=== PATIENT | male | born 1955 | race Caucasian/White ===

== ENCOUNTER 2024-06-13 08:43 | Outpatient (AMB) | payer MEDICARE, OTHER, SELFPAY ==
--- NOTE | 2024-06-13 09:03 | A.OFFPC_ITS ---
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 Patient is accompanied by his daughter. Patient reports he has concerns for L achilles-heel pain. Patient is also concerned about a large bulging vein that was on this left calf and seems to have disappeared. Patient reports he needs all of his medications and supplies refilled. 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 Accompanied by: Self / Same As Patient Allergies No Known Allergies Allergy (Verified 06/13/24 09:28) Tobacco use date assessed: 06/13/24 Fall risk assessment: No Falls in past year Last assessed Fall Risk: 06/13/24 Dental Screening Dental Screen Date: 06/13/24 Did you have a dental visit in the last 12 months?: Yes Did you have a dental problem in the last 6 months where you did not have access to dental care?: No Was dental information given to patient?: Patient has dentist HPI HPI Comments History of Present Illness Details 68 year old male with type 2 diabetes, p eripheral vascular disease, hypertension, presenting to establish care. Was being seen in the [facility] Type 2 diabetes: on glipizide, metformin. Does not recall the last time he had labs. Needs to find an eye doctor in the area. Has peripheral vascular disease. Has had some time of vein surgery on the right leg. He had swelling of the left varicosities recently-this seemed to subside but now having pain in the left heel achilles and calf area. Does report swelling without redness of the LLE. Denies increased shortness of breath. ROS see HPI PHYSICAL EXAM: GENERAL: Alert and oriented x 3. NAD EYES: EOMI. Anicteric. HENT: Moist mucous membranes. No scleral icterus. No cervical lymphadenopathy. LUNGS: Clear to auscultation bilaterally. CARDIOVASCULAR: Regular rate and rhythm. No murmur. No JVD. ABDOMEN: Soft, non-tender +bs EXTREMITIES: No edema. Non-tender. SKIN: Mild non pitting edema of the left lower leg. Large superficial varicosities. Mild calf pain to palpation. No erythema NEUROLOGIC: No focal neurological deficits. CN II-XII grossly intact PSYCHIATRIC: Cooperative. Appropriate mood and affect FOR[facility]LY [facility] Medical History (Updated 06/13/24 @ 16:17 by Bri Taylor MD) Varicose veins of both lower extremities Thyroid condition Hypertension Hypercholesterolemia Type 2 diabetes mellitus Surgical History (Updated 06/13/24 @ 09:55 by Bri Taylor MD) Status post phlebectomy Status post laser cataract surgery of both eyes Family History (Updated 06/13/24 @ 09:40 by Keren Villarreal CMA) Sister Dementia Father Cardiac disease Mother Cardiac disease Social History (Updated 06/13/24 @ 09:41 by Keren Villarreal CMA) Household Members: None Housing: Apartment Alcohol intake: never Patient Tobacco Use Status: Former Tobacco user Years Smoked: 25 e-Cigarette/Vaping Use: Never Used service: No Current occupational status: retired Cognitive needs: No Hearing needs: No Vision needs: No Questionnaire PHQ-9 Over the last 2 weeks, how often have you been bothered by any of the following problems? 39480 - PHQ-9 Billing: Patient declined-do not bill Source: Developed by Drs. Clark Mckeon, Ning Geronimo, Favian Plata and colleagues, with an educational nakita from [employer]. Thrive Questionnaire Date Thrive assessed: 05/23/24 I am a: Patient What is your living situation today?: I have a steady place to live Within the past 12 months, did the food you bought not last and you didn't have the money to get more?: Never true Within the past 12 months, did you worry whether your food would run out before you got money to buy more?: Never true Do you have trouble paying for medicines?: No Do you have trouble getting transportation to medical appointments?: No Do you have trouble paying your heating and electricity bill?: No Do you have trouble taking care of your child, family member or friend?: No Do you have trouble with day-to-day activities such as bathing, preparing meals, shopping, managing finances, etc.?: No Are you currently unemployed and looking for a job?: No Are you interested in more education?: No Please select the resources that you would like help with: None Currently or been in a relationship where the following occur: No concerns reported THRIVE Score: 0 AUDIT C Alcohol Use Questionnaire (AUDIT-C) 1. How often do you have a drink containing alcohol?: Never 3. How often do you have six or more drinks on one occasion?: Never Total Score: 0 TENA-7 AMB Questionnaire TENA-7 Date TENA - 7 assessed: 06/13/24 Feeling nervous, anxious, or on edge: 0 = Not at all Not being able to stop or control worryin = Not at all Worrying too much about different things: 0 = Not at all Trouble relaxin = Not at all Being so restless that it is hard to sit still: 0 = Not at all Becoming easily annoyed or irritable: 0 = Not at all Feeling afraid as if something awful might happen: 0 = Not at all Total TENA-7 score (0-4 normal; 5-9 mild; 10-14 moderate; 15-21 severe): 0 Source: Developed by Drs. Clark Mckeon, Ning Geronimo, Favian Plata and colleagues, with an educational nakita from [employer]. TENA-7 Assessment Billing TENA-7 Assessment Tool: TENA-7 Assessment 07502 Physical exam (Primary Care) Vital Signs: Last Vital Signs Pulse 80 06/13/24 09:18 Resp 12 06/13/24 09:18 BP 118/68 06/13/24 09:18 Pulse Ox 96 06/13/24 09:18 Oxygen Delivery Method Room Air 06/13/24 09:18 BMI result Body Mass Index 32.7 Tobacco/Smoking Status: Tobacco use Status Tobacco use date assessed 06/13/24 06/13/24 09:41 Patient Tobacco Use Status Former Tobacco user 06/13/24 09:41 e-Cigarette/Vaping Use Never Used 06/13/24 09:41 Thrive Assessment: Date of Thrive Assessment Date Thrive assessed 05/23/24 06/13/24 09:03 Currently or been in a relationship where the following occur: No concerns reported Assessment and Plan Assessment & Plan (1) Type 2 diabetes mellitus: Code(s): E11.9 - Type 2 diabetes mellitus without complications Qualifiers: Diabetes mellitus termination clerk insulin use: without penitentiary use Diabetes mellitus complication status: with circulatory complication Diabetes mellitus complication detail: with other circulatory complications Qualified Code(s): E11.59 - Type 2 diabetes mellitus with other circulatory complications Plan: Check labs. med changes pending results PVD-referral to vascular placed. LLE u/s to r/o DVT (2) Hypertension: Code(s): I10 - Essential (primary) hypertension Qualifiers: Hypertension type: primary hypertension Qualified Code(s): I10 - Essential (primary) hypertension (3) Thyroid condition: Code(s): E07.9 - Disorder of thyroid, unspecified (4) Peripheral vascular disease: Code(s): I73.9 - Peripheral vascular disease, unspecified Plan 68 yo to establish care. past medical, surgical, social and family history reviewed. Chart updated Orders: Orders TSH reflex Free T4 Today E07.9 - Disorder of thyroid, unspecified, E11.9 - Type 2 diabetes mellitus without complications, I10 - Essential (primary) hypertension US venous duplex LE LT Today E07.9 - Disorder of thyroid, unspecified, E11.9 - Type 2 diabetes mellitus without complications, I10 - Essential (primary) hypertension, M79.662 - Pain in left lower leg Lipid Panel Today E07.9 - Disorder of thyroid, unspecified, E11.9 - Type 2 diabetes mellitus without complications, I10 - Essential (primary) hypertension Complete Blood Count Auto Diff Today E07.9 - Disorder of thyroid, unspecified, E11.9 - Type 2 diabetes mellitus without complications, I10 - Essential (primary) hypertension Comprehensive Met. Panel Today E07.9 - Disorder of thyroid, unspecified, E11.9 - Type 2 diabetes mellitus without complications, I10 - Essential (primary) hypertension Hemoglobin A1c Today E07.9 - Disorder of thyroid, unspecified, E11.9 - Type 2 diabetes mellitus without complications, I10 - Essential (primary) hypertension Referrals Vascular Surgery Referral E07.9 - Disorder of thyroid, unspecified, E11.9 - Type 2 diabetes mellitus without complications, I10 - Essential (primary) hypertension, I73.9 - Peripheral vascular disease, unspecified, M79.662 - Pain in left lower leg, Z98.890 - Other specified postprocedural states Medications: New atorvastatin 10 mg PO BEDTIME 90 tabs 3RF hydrochlorothiazide 12.5 mg PO QAM 90 caps 3RF levothyroxine 150 mcg PO DAILY 90 caps 3RF glipizide 10 mg PO DAILY 90 tabs 3RF lisinopril 20 mg PO DAILY 90 tabs 3RF metformin 1,000 mg PO BIDWMEAL 180 tabs 3RF OneTouch Ultra Test (blood sugar diagnostic) once daily 100 ea 3RF NS E11.9 - Type 2 diabetes mellitus without complications OneTouch Delica Plus Lancet (lancets) once daily 100 ea 3RF NS E11.9 - Type 2 diabetes mellitus without complications Coding Level of Care Code New Pt Level 4 (71519) Complex EM visit Add On G2211 Diagnoses Type 2 diabetes mellitus with other circulatory complication, without long-term current use of insulin E11.59 Diabetes mellitus penitentiary insulin use: without penitentiary use Diabetes mellitus complication status: with circulatory complication Diabetes mellitus complication detail: with other circulatory complications Primary hypertension I10 Hypertension type: primary hypertension Thyroid condition E07.9 Peripheral vascular disease I73.9 Additional Codes TENA-7 Assessment Billing - TENA-7 Assessment Tool: TENA-7 Assessment [id number] ([id number])
[2024-06-13 09:18] VITALS: BP 118/68; PULSE 80; RESP 12; O2SAT 96; BMI 32.7
== END 2024-06-13 10:04 | disposition home or self-care (01) ==
PROVIDERS: PCP Internal Medicine; Visit Provider Internal Medicine
DX: E11.59 Type 2 diabetes mellitus with other circulatory complications (principal); I10 Essential (primary) hypertension; E07.9 Disorder of thyroid, unspecified; I73.9 Peripheral vascular disease, unspecified

== ENCOUNTER → 2024-06-13 08:43 | Outpatient (BNVA) | payer MEDICARE, OTHER, SELFPAY | PROVIDERS: PCP Internal Medicine; Visit Provider Internal Medicine | DX: E11.59 Type 2 diabetes mellitus with other circulatory complications (principal); I10 Essential (primary) hypertension; E07.9 Disorder of thyroid, unspecified; I73.9 Peripheral vascular disease, unspecified; Z79.84 Long term (current) use of oral hypoglycemic drugs | CPT/HCPCS: 36415; 80053; 80061; 83036; 84443; 85025; 96127; 99202 ==

== ENCOUNTER 2024-06-13 10:09 | Outpatient (REF) | payer MEDICARE, OTHER, SELFPAY ==
[2024-06-13 11:11] LABS: MANUAL DIFF FLAG NO
[2024-06-13 11:18] LABS: Basophils Absolute Auto 0.1 X10*3/uL (0.0-0.2); Basophils Percent Auto 1.1 % (0-2); Eosinophils Absolute Auto 0.2 X10*3/uL (0.0-0.4); Hematocrit 43.7 % (42.0-52.0); Hemoglobin 14.7 g/dl (14.0-18.0); Imm Gran Abs Auto 0.03 X10*3/uL (0.00-0.03); Imm Gran Pct Auto 0.4 % (0.0-0.4); Lymphocytes Absolute Auto 2.2 X10*3/uL (1.2-4.9); Lymphocytes Percent Auto 27.6 % (20-40); Mean Corpuscular HGB Conc 33.6 g/dl (31.0-36.0); Mean Corpuscular Hemoglobin 26.8 pg (27.0-33.0); Mean Corpuscular Volume 79.6 fL (80.0-98.0); Mean Platelet Volume 10.8 fL (9.4-12.4); Monocytes Absolute Auto 0.8 X10*3/uL (0.1-1.2); Monocytes Percent Auto 9.4 % (2-11); Neutrophils Absolute Auto 4.8 x10*3/uL (2.0-8.3); Neutrophils Percent Auto 59.5 % (45-73); Platelet Count 288 X10*3/uL (160-400); Red Blood Count 5.49 X10*6/uL (4.60-5.80); Red Cell Distribution Width 14.7 % (11.0-16.0)
[2024-06-13 11:39] LABS: Estimated Average Glucose 237 mg/dL; Hemoglobin A1c % 9.9 % (<6.0); Total Hemoglobin (HGBA1C) 3668.8075 umol/L
[2024-06-13 12:00] LABS: Alanine Aminotransferase 32 U/L (0-40); Albumin Level 4.2 g/dL (3.5-5.0); Alkaline Phosphatase 129 U/L (39-117); Anion Gap 13 (12-20); Aspartate Amino Transferase 22 U/L (5-37); Bilirubin Total 1.1 mg/dL (0.0-1.0); Blood Urea Nitrogen 20 mg/dL (9-16); Calcium 9.8 mg/dL (8.4-10.2); Carbon Dioxide 26 mmol/L (22-29); Chloride 100 mmol/L (96-108); Cholesterol 143 mg/dL (<200); Estimated Glomerular Filt Rate > 60; Glucose Random 157 mg/dL (60-115); HDL Cholesterol 38 mg/dL (>40); LDL Cholesterol Calculated 71 mg/dL (<100); Potassium 4.2 mmol/L (3.3-5.1); Sodium 135 mmol/L (135-145); Total Protein 7.3 g/dL (6.5-8.0); Triglycerides 171 mg/dL (<150)
[2024-06-13 12:07] LABS: TSH reflex Free T4 2.48 uIU/mL (0.32-4.0)
== END 2024-06-13 10:10 | disposition home or self-care (01) ==
LOC: HO.WFDLDS 10:09
PROVIDERS: Visit Provider Internal Medicine
DX: E07.9 Disorder of thyroid, unspecified (principal); I10 Essential (primary) hypertension; E11.9 Type 2 diabetes mellitus without complications
CPT/HCPCS: 36415; 80053; 80061; 83036; 84443; 85025

== ENCOUNTER 2024-06-13 16:00 | Outpatient (REF) | payer MEDICARE, SELFPAY ==
--- NOTE | ~2024-06-13 | US_ITS ---
EXAMINATION: US TRIPLEX LOWER EXTREMITY, LEFT CLINICAL INFORMATION: Pain COMPARISON: None available. TECHNIQUE: Color-flow triplex imaging with spectral analysis and compression Doppler were performed on the left lower extremity. FINDINGS: Respiratory variation, normal compression and augmented flow are noted throughout the left lower extremity. The visualized common femoral vein, superficial femoral vein, profunda femoral vein, popliteal vein and midcalf peroneal and posterior tibial venous segments show no evidence of deep venous thrombosis. There is no Mcgraw's cyst. US/US venous duplex LE LT IMPRESSION: No evidence of deep venous thrombosis involving the left lower extremity. Electronically signed by: Ritu Bentley MD 06/13/2024 08:00 PM EDT
== END 2024-06-13 16:01 | disposition home or self-care (01) ==
LOC: HO.US 16:00
PROVIDERS: PCP Internal Medicine; Visit Provider Internal Medicine
DX: M79.662 Pain in left lower leg (principal); I10 Essential (primary) hypertension; E07.9 Disorder of thyroid, unspecified; E11.9 Type 2 diabetes mellitus without complications
CPT/HCPCS: 93971

== ENCOUNTER 2024-07-07 10:29 | Outpatient (AMB) | payer MEDICARE, OTHER, SELFPAY ==
--- NOTE | 2024-07-07 10:34 | MHC.OFFVIS ---
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 States he has leg swelling and bulging varicose veins. He has left leg pain , worse at night. Patient is diabetic. 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 Jac is presenting today as a referral from his PCP for an ongoing left lower extremity pain and discomfort with varicose vein concerns. States the pain is worse at night and his foot becomes swollen. He is not currently using any conservative measures. He does have a history of a right lower extremity phlebectomy a few years ago. He has been negative for DVT on ultrasound recently. He is a nonsmoker but is a diabetic on oral medications. He states his blood sugars go up and down often, his most recent A1c is 9.9%. He also has concerns of left heel pain, which worsens with any activity. He denies history PE or DVT as well as phlebitis. [facility] Medical History Varicose veins of both lower extremities Thyroid condition Hypertension Hypercholesterolemia Type 2 diabetes mellitus Surgical History Status post phlebectomy Status post laser cataract surgery of both eyes Family History Sister Dementia Father Cardiac disease Mother Cardiac disease Social History Household Members: None Housing: Apartment Alcohol intake: never Patient Tobacco Use Status: Former Tobacco user Years Smoked: 25 e-Cigarette/Vaping Use: Never Used service: No Current occupational status: retired Cognitive needs: No Hearing needs: No Vision needs: No Review of Systems Const Reports as per HPI and Denies weakness ENT Reports Normal hearing present and Denies dizziness Card Reports as per HPI, Denies chest pain, Denies chest pain at rest, Denies chest pain with activity, Denies dyspnea and Denies dyspnea on exertion Resp Reports as per HPI, Denies cough, Denies dyspnea and Denies dyspnea on exertion GI Reports as per HPI, Denies abdominal pain, Denies nausea and Denies vomiting Musc Denies numbness Skin/Breast Reports as per HPI, Denies erythema and Denies wounds Neuro Reports Normal hearing present, Denies dizziness, Denies numbness, Denies Sensory deficit (Neuro) and Denies weakness Psych Reports no additional complaints Endo Reports no additional complaints Physical Exam Const General: healthy appearing and no acute distress Orientation/consciousness: patient oriented x3 HEENT Head: Yes normal to inspection Ears: hearing grossly normal bilaterally Mouth: Normal oral and palatal mucosa present Resp Effort & Inspection: normal respiratory effort and able to speak in complete sentences Auscultation: clear to auscultation bilaterally Cardio Jugular venous distension: no JVD Rate: regular rate Rhythm: regular rhythm Heart sounds: S1 normal heart sound present and S2 normal heart sound present Bruits: no abdominal aortic bruits, no carotid bruits, no femoral bruits and no renal bruits Peripheral pulses: Peripheral pulses 2+ throughout GI Inspection: Yes normal to inspection Palpation (GI): No Abdominal aortic bruit present Skin Other: Left lower extremity: 2 bulging varicosities noted on the medial aspect below the knee. Minimal swelling below the ankle. Skin warm dry pink. Strong and palpable DP PT pulses. Right lower extremity: No varicosities noted. Minimal swelling noted below the ankle. Strongly palpable DP PT pulses CEAP: C - 3 edema E - primary A - superficial P - reflux General skin exam: no rashes or lesions noted Wounds: no wounds Hair: normal Neuro General: patient oriented x3 Cranial nerves: Yes Normal hearing present Cognition (Neuro): normal cognition Gait exam (Neuro): Normal gait present Motor exam (neuro): 5/5 motor strength present throughout Sensory Exam: No Sensory deficit (Neuro) Extrem General: Yes normal to inspection, Yes full ROM, Yes capillary refill normal and Yes normal gait Assessment & Plan Assessment & Plan (1) Varicose veins of lower extremity with inflammation, bilateral: Code(s): I83.11 - Varicose veins of right lower extremity with inflammation; I83.12 - Varicose veins of left lower extremity with inflammation Category: Medical Plan: Jac is presenting today as a referral from his PCP for varicose vein concerns. States his left lower extremity is worse than his right. He has a history of an RLE phlebectomy, unknown exact date. He currently complains of cramping and left heel pain, worse at night and worse with activity. He does state that he has swelling as well below his ankles bilaterally. In short, the patient has evidence of venous insufficiency. I have discussed the pathophysiology with the patient. In addition I have provided informational material regarding venous disease to the patient. We have discussed conservative measures including compression, elevation, and exercise. I have also provided a handout regarding appropriate use of compression stockings and where to purchase good compression stockings as well (Nola explained this to him in [place]). I have taken the liberty of ordering venous insufficiency testing with the patient. They will follow up with me after testing. The patient had an opportunity to ask questions regarding the treatment plan. All questions were answered. No major barriers to understanding were identified. The patient expressed understanding and agreement with the above treatment plan. The patient is aware they should contact our office by phone for worsening of the current condition or the appearance of new symptoms. Thank you for allowing me to participate in the vascular care of this patient. If you have any questions or concerns regarding the treatment for the above condition please do not hesitate to contact me. The office telephone contact is [phone]. This note is constructed using voice recognition software. While every effort has been made to ensure accuracy, tower air traffic control specialist errors may have been included. Thank you for allowing me to participate in the care of your patient. Yours sincerely, OLEG Waters Coding Level of Care Code New Pt New Pt Level 4 (12975) Patient Type New Diagnoses Varicose veins of lower extremity with inflammation, bilateral I83.11; I83.12
== END 2024-07-07 10:48 | disposition home or self-care (01) ==
PROVIDERS: PCP Internal Medicine; Visit Provider Physician Assistant Surgical
DX: I83.11 Varicose veins of right lower extremity with inflammation (principal); I83.12 Varicose veins of left lower extremity with inflammation
CPT/HCPCS: 99204

== ENCOUNTER → 2024-07-07 10:29 | Outpatient (BNVA) | payer MEDICARE, SELFPAY | PROVIDERS: PCP Internal Medicine; Visit Provider Physician Assistant Surgical | DX: E11.51 Type 2 diabetes mellitus with diabetic peripheral angiopathy without gangrene (principal); I83.11 Varicose veins of right lower extremity with inflammation; I83.12 Varicose veins of left lower extremity with inflammation | CPT/HCPCS: 99202 ==

== ENCOUNTER 2024-07-22 10:14 | Outpatient (REF) | payer MEDICARE, SELFPAY ==
--- NOTE | ~2024-07-22 | US_ITS ---
EXAMINATION: US LOWER EXTREMITY VENOUS (REFLUX EXAM), BILATERAL CLINICAL INDICATION: Chronic venous insufficiency with history of varicose veins and inflammation. Status post right great saphenous vein ablation COMPARISON: None. TECHNIQUE: Color flow triplex imaging and compression Doppler was performed to evaluate both the deep and the superficial systems bilaterally. To evaluate the superficial system, the examination was performed in the upright position. Color-flow Doppler ultrasound and compression ultrasound were utilized. In addition, maneuvers were utilized to demonstrate reflux. FINDINGS: 1. DEEP VENOUS ULTRASOUND OF THE RIGHT LOWER EXTREMITY: Common Femoral Vein: Compressible, normal respiratory variation and augmented flow. Femoral Vein: Compressible, normal color flow and augmentation. Popliteal Vein: Compressible, normal augmentation. Deep Reflux: There is no evidence of reflux in the deep system in either the common femoral vein, superficial femoral or the popliteal vein. There is no evidence of a Mgcraw's cyst. 2. SUPERFICIAL ULTRASOUND WITH DOPPLER OF RIGHT LOWER EXTREMITY: GREAT SAPHENOUS VEIN: Saphenofemoral Junction: 0.8 cm; Reflux: 0 ms Proximal Thigh: 0.4 cm; Reflux: 0 ms Mid Thigh: Not visualized Above Knee: Not visualized At Knee: Not visualized Below Knee: 0.1 cm; Reflux: 0 ms Mid Calf: 0.1 cm; Reflux: 2404 ms Ankle: 0.4 cm; Reflux: 0 ms DUPLICATED MEDIAL GREAT SAPHENOUS VEIN: Diameter: None imaged Reflux: NA DUPLICATED LATERAL GREAT SAPHENOUS VEIN: Diameter: 0.3 cm Reflux: None SMALL SAPHENOUS VEIN: Saphenopopliteal Junction: 0.2 cm; Reflux: 0 ms Mid: 0.3 cm; Reflux: 0 ms Distal: 0.2 cm; Reflux: 0 ms VEIN OF GIACOMINI: Size: NA Reflux: NA PERFORATORS: Location: Medial proximal calf into the great saphenous vein and varicosities Size: 0.3 cm Reflux: 2108 ms VARICOSITIES: Location: Distal medial calf Size: 0.3 cm Reflux: None 3. DEEP VENOUS ULTRASOUND OF THE LEFT LOWER EXTREMITY: Common Femoral Vein: Compressible, normal respiratory variation and augmented flow. Femoral Vein: Compressible, normal color flow and augmentation. Popliteal Vein: Compressible, normal augmentation. Deep Reflux: There is no evidence of reflux in the deep system in either the common femoral vein, superficial femoral or the popliteal vein. There is no evidence of a Mcgraw's cyst. 4. SUPERFICIAL ULTRASOUND WITH DOPPLER OF LEFT LOWER EXTREMITY: GREAT SAPHENOUS VEIN: Saphenofemoral Junction: 1.2 cm; Reflux: 2188 ms Proximal Thigh: 0.6 cm; Reflux: 2360 ms Above Knee: 0.5 cm; Reflux: 1396 ms At Knee: 0.3 cm cm; Reflux: 1736 ms Below Knee: 0.4 cm; Reflux: 0 ms Mid Calf: 0.3 cm; Reflux: 0 ms Ankle: 0.4 cm; Reflux: 0 ms DUPLICATED MEDIAL GREAT SAPHENOUS VEIN: Diameter: None imaged Reflux: NA DUPLICATED LATERAL GREAT SAPHENOUS VEIN: Diameter: 0.3 cm Reflux: None SMALL SAPHENOUS VEIN: Saphenopopliteal Junction: 0.3 cm; Reflux: 0 ms Proximal: 0.3 cm; Reflux: 0 ms Distal: 0.2 cm; Reflux: 0 ms VEIN OF GIACOMINI: Size: NA Reflux: NA PERFORATORS: Location: Mid thigh extending into the great saphenous vein Size: 0.3 cm Reflux: 2728 ms VARICOSITIES: Location: Distal thigh off the great saphenous vein, proximal and mid calf off the great saphenous vein Size: 0.3 to 0.4 cm Reflux: Ranging from 800 ms to 2340 ms US/US venous duplex LE BI IMPRESSION: 1. Right: Status post ablation of the right great saphenous vein. There is a small amount of residual great saphenous vein in the mid calf with severe reflux. There is a botany technician in the proximal calf extending into the great saphenous vein and varicosities. 2. Left: Severe reflux in the left great saphenous vein with multiple varicosities extending from the great saphenous vein. Electronically signed by: Jf Bobby MD 08/13/2024 12:56 PM EST
== END 2024-07-22 10:15 | disposition home or self-care (01) ==
LOC: HO.US 10:14
PROVIDERS: PCP Internal Medicine; Visit Provider Physician Assistant Surgical
DX: I83.11 Varicose veins of right lower extremity with inflammation (principal); I83.12 Varicose veins of left lower extremity with inflammation
CPT/HCPCS: 93970

== ENCOUNTER 2024-09-02 08:54 | Outpatient (AMB) | payer MEDICARE, SELFPAY ==
--- NOTE | 2024-09-02 09:00 | MHC.OFFVIS ---
Intake Visit Reasons: follow up s/p US 07/22/24 Intake Note: Patient presents for follow up performed on 07/22/24. No complaints. Allergies No Known Allergies Allergy (Verified 09/02/24 09:03) HPI HPI follow up s/p 07/22/24: Details: Jac is presenting today as a follow up to his US, performed on 07/22/24. We utilized Alyssa as an e learning coordinator. He continues to endorse left lower extremity pain. He has obtained shoe inserts to help with his heel pain, which he states has been working very well. He has been trialing with compression stockings as well as elevation, with little relief. [facility] Medical History Varicose veins of both lower extremities Thyroid condition Hypertension Hypercholesterolemia Type 2 diabetes mellitus Surgical History Status post phlebectomy Status post laser cataract surgery of both eyes Family History Sister Dementia Father Cardiac disease Mother Cardiac disease Social History Household Members: None Housing: Apartment Alcohol intake: never Patient Tobacco Use Status: Former Tobacco user Years Smoked: 25 e-Cigarette/Vaping Use: Never Used service: No Current occupational status: retired Cognitive needs: No Hearing needs: No Vision needs: No Review of Systems Const Reports as per HPI and Denies weakness ENT Reports Normal hearing present and Denies dizziness Card Reports as per HPI, Denies chest pain, Denies chest pain at rest, Denies chest pain with activity, Denies dyspnea and Denies dyspnea on exertion Resp Reports as per HPI, Denies cough, Denies dyspnea and Denies dyspnea on exertion GI Reports as per HPI, Denies abdominal pain, Denies nausea and Denies vomiting Musc Denies numbness Skin/Breast Reports as per HPI, Denies erythema and Denies wounds Neuro Reports Normal hearing present, Denies dizziness, Denies numbness, Denies Sensory deficit (Neuro) and Denies weakness Psych Reports no additional complaints Endo Reports no additional complaints Physical Exam Const General: healthy appearing and no acute distress Orientation/consciousness: patient oriented x3 HEENT Head: Yes normal to inspection Ears: hearing grossly normal bilaterally Mouth: Normal oral and palatal mucosa present Resp Effort & Inspection: normal respiratory effort and able to speak in complete sentences Auscultation: clear to auscultation bilaterally Cardio Jugular venous distension: no JVD Rate: regular rate Rhythm: regular rhythm Heart sounds: S1 normal heart sound present and S2 normal heart sound present Bruits: no abdominal aortic bruits, no carotid bruits, no femoral bruits and no renal bruits Peripheral pulses: Peripheral pulses 2+ throughout GI Inspection: Yes normal to inspection Palpation (GI): No Abdominal aortic bruit present Skin General skin exam: no rashes or lesions noted Wounds: no wounds Hair: normal Neuro General: patient oriented x3 Cranial nerves: Yes Normal hearing present Cognition (Neuro): normal cognition Gait exam (Neuro): Normal gait present Motor exam (neuro): 5/5 motor strength present throughout Sensory Exam: No Sensory deficit (Neuro) Extrem Other: Left lower extremity: 2 bulging varicosities noted on the medial aspect below the knee. Minimal swelling below the ankle. Skin warm dry pink. Strong and palpable DP PT pulses. Right lower extremity: No varicosities noted. Minimal swelling noted below the ankle. Strongly palpable DP PT pulses General: Yes normal to inspection, Yes full ROM, Yes capillary refill normal and Yes normal gait Results Reviewed Results Reviewed: Brief summary of venous insufficiency testing is as follows: right great saphenous vein: negative right small saphenous vein: negative right accessory vein: none present left great saphenous vein: positive in the SFJ, prox thigh, and at the knee left small saphenous vein: negative left accessory vein: none present Please note there is no evidence of any venous aneurysms or significant tortuosity Assessment & Plan Assessment & Plan (1) Varicose veins of lower extremity with inflammation, bilateral: Code(s): I83.11 - Varicose veins of right lower extremity with inflammation; I83.12 - Varicose veins of left lower extremity with inflammation Category: Medical Plan: Jac is presenting today as a follow up to his venous insufficiency ultrasound, performed on 07/22/2024. His ultrasound was positive for venous insufficiency noted in the left great saphenous vein. He does continue with the symptoms of increased swelling as well as pain in the left lower extremity. This patient has varicose veins with inflammation. They continue to be a source of discomfort for the patient. The patient has tried conservative treatment with compression, leg elevation and exercise program for over 3 months time. They have been compliant with all treatment. This has provided minimal relief for the patient. I do not anticipate this course of treatment will alter the underlying etiology. The patient has been scheduled for lower extremity venous treatment inclusive of --- radiofrequency ablation of the left greater saphenous vein. Risks, benefits, and complications of this procedure has been discussed in detail with the patient including but not limited to bleeding, infection, and the development of a DVT. We provided him with a brochure in [place] about the procedure as well. The patient has demonstrated a clear understanding and has consented. We will schedule the patient as soon as possible. Thank you for allowing us to participate in this patient's care. If there are any questions or concerns please do not hesitate to contact us. Coding Level of Care Code Est Pt Level 4 (20800) Diagnoses Varicose veins of lower extremity with inflammation, bilateral I83.11; I83.12 Comment Review of venous insufficiency ultrasound
== END 2024-09-02 09:28 | disposition home or self-care (01) ==
PROVIDERS: PCP Internal Medicine; Visit Provider Physician Assistant Surgical
DX: I83.11 Varicose veins of right lower extremity with inflammation (principal); I83.12 Varicose veins of left lower extremity with inflammation
CPT/HCPCS: 99214

== ENCOUNTER → 2024-09-02 08:54 | Outpatient (BNVA) | payer MEDICARE, SELFPAY | PROVIDERS: PCP Internal Medicine; Visit Provider Physician Assistant Surgical | DX: I83.11 Varicose veins of right lower extremity with inflammation (principal); I83.12 Varicose veins of left lower extremity with inflammation | CPT/HCPCS: 99212 ==

== ENCOUNTER 2024-09-15 08:49 | Outpatient (AMB) | payer MEDICARE, SELFPAY ==
--- NOTE | 2024-09-15 08:56 | MHC.PC.OV ---
Vital Signs 09/15/24 08:59 Height 5 ft 0.25 in Weight 200 lb 8 oz BMI 38.8 BP 118/70 Blood Pressure Location Rt brachial Position Sitting Pulse 70 Pulse Source Pulse Oximeter Pulse Oximetry (%) 97 Oxygen Delivery Method Room Air Intake Visit Reasons: DM Intake Note: Diabetes follow up. Needs levothyroxine refilled. Cable Television Program Director Required: No Cable Television Program Director Name: Cable Television Program Director refused Accompanied by: Daughter Allergies No Known Allergies Allergy (Verified 09/15/24 08:59) Tobacco use date assessed: 06/13/24 Dental Screening Dental Screen Date: 06/13/24 HPI HPI Comments History of Present Illness Details 69 year old male with type 2 diabetes, peripheral vascular disease, hypertension, presenting for diabetes follow up Type 2 diabetes: on glipizide, metformin, actos 30mg daily. Has peripheral vascular disease. Was referred to vascular. Hypothyroid: On levothyroxine 150mcg daily CV: On hctz, lisinopril, atorvastatin ROS see HPI PHYSICAL EXAM: GENERAL: Alert and oriented x 3. NAD EYES: EOMI. Anicteric. HENT: Moist mucous membranes. No scleral icterus. No cervical lymphadenopathy. LUNGS: Clear to auscultation bilaterally. CARDIOVASCULAR: Regular rate and rhythm. No murmur. No JVD. ABDOMEN: Soft, non-tender +bs EXTREMITIES: No edema. Non-tender. SKIN: Mild non pitting edema of the left lower leg. Large superficial varicosities. Mild calf pain to palpation. No erythema NEUROLOGIC: No focal neurological deficits. CN II-XII grossly intact PSYCHIATRIC: Cooperative. Appropriate mood and affect [facility] Medical History Varicose veins of both lower extremities Thyroid condition Hypertension Hypercholesterolemia Type 2 diabetes mellitus Surgical History Status post phlebectomy Status post laser cataract surgery of both eyes Family History Sister Dementia Father Cardiac disease Mother Cardiac disease Social History (Updated 09/15/24 @ 09:05 by Brit Mckenzie CMA) Household Members: None Housing: Apartment Alcohol intake: never Patient Tobacco Use Status: Former Tobacco user Years Smoked: 25 e-Cigarette/Vaping Use: Never Used service: No Current occupational status: retired Cognitive needs: No Hearing needs: No Vision needs: No Questionnaire Thrive Questionnaire Date Thrive assessed: 05/23/24 I am a: Patient What is your living situation today?: I have a steady place to live Within the past 12 months, did the food you bought not last and you didn't have the money to get more?: Never true Within the past 12 months, did you worry whether your food would run out before you got money to buy more?: Never true Do you have trouble paying for medicines?: No Do you have trouble getting transportation to medical appointments?: No Do you have trouble paying your heating and electricity bill?: No Do you have trouble taking care of your child, family member or friend?: No Do you have trouble with day-to-day activities such as bathing, preparing meals, shopping, managing finances, etc.?: No Are you currently unemployed and looking for a job?: No Are you interested in more education?: No Please select the resources that you would like help with: None Currently or been in a relationship where the following occur: No concerns reported THRIVE Score: 0 TENA-7 AMB Questionnaire TENA-7 Date TENA - 7 assessed: 06/13/24 Becoming easily annoyed or irritable: 0 = Not at all Source: Developed by Drs. Clark Mckeon, Ning Geronimo, Favian Plata and colleagues, with an educational nakita from [employer] Physical exam (Primary Care) Vital Signs: Last Vital Signs Pulse 70 09/15/24 08:59 BP 118/70 09/15/24 08:59 Pulse Ox 97 09/15/24 08:59 Oxygen Delivery Method Room Air 09/15/24 08:59 BMI result Body Mass Index 38.8 Tobacco/Smoking Status: Tobacco use Status Tobacco use date assessed 06/13/24 09/15/24 08:57 Patient Tobacco Use Status Former Tobacco user 09/15/24 09:05 e-Cigarette/Vaping Use Never Used 09/15/24 09:05 Thrive Assessment: Date of Thrive Assessment Date Thrive assessed 05/23/24 09/15/24 08:57 Currently or been in a relationship where the following occur: No concerns reported Results AMB Hemoglobin A1c AMB Hemoglobin A1c 7.4 % Last Edit by Brit Mckenzie CMA on 09/15/24 09:20 Results Reviewed Results Reviewed: Laboratory Last Values Hgb A1c (Clinic) 7.4 % (4.0-6.0) H 09/15/24 09:05 Coding Level of Care Code Est Pt Level 4 (99613) Diagnoses Type 2 diabetes mellitus with other circulatory complication, without long-term current use of insulin E11.59 Diabetes mellitus snf insulin use: without terminal make up operator use Diabetes mellitus complication status: with circulatory complication Diabetes mellitus complication detail: with other circulatory complications Peripheral vascular disease I73.9 Assessment & Plan Assessment & Plan (1) Type 2 diabetes mellitus: Code(s): E11.9 - Type 2 diabetes mellitus without complications Category: Medical Qualifiers: Diabetes mellitus snf insulin use: without snf use Diabetes mellitus complication status: with circulatory complication Diabetes mellitus complication detail: with other circulatory complications Qualified Code(s): E11.59 - Type 2 diabetes mellitus with other circulatory complications Plan: On metformin, actos. Stop glipizide, start mounjaro. (2) Peripheral vascular disease: Code(s): I73.9 - Peripheral vascular disease, unspecified Category: Medical Plan: continue vascular follow up Orders: Orders AMB Hemoglobin A1c 09/15/24 E11.59 - Type 2 diabetes mellitus with other circulatory complications Medications: New Mounjaro (tirzepatide) for 4 weeks 2.5 mg (0.5 mL) subcut QWEEK 2 mL 3RF NS Refilled levothyroxine 150 mcg PO DAILY 90 tabs 3RF Discontinued glipizide Discontinued Reason: Doctor's Order 10 mg PO DAILY 90 tabs 3RF
[2024-09-15 08:59] VITALS: BP 118/70; PULSE 70; O2SAT 97; BMI 38.8
== END 2024-09-15 09:40 | disposition home or self-care (01) ==
PROVIDERS: PCP Internal Medicine; Visit Provider Internal Medicine
DX: E11.59 Type 2 diabetes mellitus with other circulatory complications (principal); I73.9 Peripheral vascular disease, unspecified

== ENCOUNTER → 2024-09-15 08:49 | Outpatient (BNVA) | payer MEDICARE, SELFPAY | PROVIDERS: PCP Internal Medicine; Visit Provider Internal Medicine | DX: E11.59 Type 2 diabetes mellitus with other circulatory complications (principal); I73.9 Peripheral vascular disease, unspecified; I10 Essential (primary) hypertension; Z79.84 Long term (current) use of oral hypoglycemic drugs | CPT/HCPCS: 83036; 99212 ==

== ENCOUNTER 2024-10-24 07:16 | Outpatient (AMB) | payer MEDICARE, SELFPAY ==
--- NOTE | 2024-10-24 07:23 | A.OFFVIS_ITS ---
Intake Visit Reasons: Left GSV RFA Accompanied by: Self / Same As Patient Allergies No Known Allergies Allergy (Verified 10/24/24 07:24) PFS Medical History Varicose veins of both lower extremities Thyroid condition Hypertension Hypercholesterolemia Type 2 diabetes mellitus Surgical History Status post phlebectomy Status post laser cataract surgery of both eyes Family History Sister Dementia Father Cardiac disease Mother Cardiac disease Social History Household Members: None Housing: Apartment Alcohol intake: never Patient Tobacco Use Status: Former Tobacco user Years Smoked: 25 e-Cigarette/Vaping Use: Never Used service: No Current occupational status: retired Cognitive needs: No Hearing needs: No Vision needs: No Office Procedures Vascular Office Procedure Details Details: Diagnosis: Varicose veins with inflammation of left leg Procedure: Endovenous radiofrequency ablation of the left great saphenous vein(s) of the lower extremity. Anesthesia: Local infiltration 5 cc, Tumescent 300 cc. Estimated Blood Loss: minimal Specimen: Varicose veins The patient was transferred to the procedure suite and the insufficient saphenous vein was mapped by ultrasound and diagrammed on the overlying skin. The depth and diameter of the vein(s) to be treated was documented. The varicose tributary veins and suitable access sites were identified and mapped as well. The patient was then positioned supine on the procedure table. The affected limb was prepped and draped in the usual sterile fashion. The RF catheter was placed on the sterile field, flushed and wiped down, prepared, and connected by a sterile cable. The patient was placed in supine position and local anesthesia was instilled in the skin overlying the access site. A skin incision was made overlying the identified and mapped great saphenous vein entry site. The vein was accessed using ultrasound guidance and the Seldinger technique, a guide wire was introduced through the needle, which was then exchanged over the guide wire for a 6F sheath, which was secured in place. The guide wire was removed and the sheath was flushed. The RF catheter was placed into the vein through the sheath and preferentially, imaging was used to place the catheter tip just inferior to the superficial epigastric vein to preserve normal physiological flow in that vein. Additionally, it was confirmed by ultrasound guidance that the catheter tip was also placed a minimum of 1.5cm distal to the saphenofemoral junction. After the RF catheter position was verified by ultrasound, tumescent anesthesia was infiltrated, under ultrasound guidance, precisely into the perivenous compartment along the entire length of vein from the entry site to the saphen ofemoral junction until a halo of fluid was noted around the vein. The patient was then placed in supine position to further exsanguinate the superficial venous system. After RF catheter position was again confirmed with ultrasound imaging, and under direct external compression along the length of the heating element, RF energy was applied. The vein was segmentally ablated by heating a 8 cm segment and then indexing the catheter forward by 7.5 cm until the treatment length is completed. Device temperature was maintained at 120 plus or minus 5 degrees C with an initial power level of 40W dropping to below 20W for each treatment. Total vein length treated 32 cm Total cycles of RF 5. Repeat ultrasound of the saphenous vein was performed, confirming successful treatment. The catheter and sheath were withdrawn and hemostasis established with direct pressure. After assuring hemostasis, the skin incision over the saphenous vein was closed with a bandage and a compression wrap, and/ or gra duated compression stocking was applied from the level of the foot to the most proximal level of the thigh. 94363 - Endovenous RF, 1st Vein All charges added?: Procedure code (CPT) selection complete Assessment & Plan Assessment & Plan (1) Varicose veins of left lower extremity with inflammation: Comment: 10/24/2024 - left great saphenous vein radiofrequency ablation Code(s): I83.12 - Varicose veins of left lower extremity with inflammation Category: Medical Plan: See op note Coding Level of Care Code Procedure Only Diagnoses Varicose veins of left lower extremity with inflammation I83.12 CPT Codes Details - Vascular 1: 95451 - Endovenous RF, 1st Vein ([id number])
== END 2024-10-24 08:40 | disposition home or self-care (01) ==
PROVIDERS: PCP Internal Medicine; Visit Provider Surgery Vascular Surgery
DX: I83.12 Varicose veins of left lower extremity with inflammation (principal)
CPT/HCPCS: 36475

== ENCOUNTER → 2024-10-24 07:16 | Outpatient (BNVA) | payer MEDICARE, SELFPAY | PROVIDERS: PCP Internal Medicine; Visit Provider Surgery Vascular Surgery | DX: I83.12 Varicose veins of left lower extremity with inflammation (principal) | CPT/HCPCS: 36475; J2003; J2004 ==

== ENCOUNTER 2024-11-06 15:35 | Outpatient (AMB) | payer MEDICARE, SELFPAY ==
[2024-11-06 15:36] VITALS: BMI 32.0
--- NOTE | 2024-11-06 15:36 | A.OFFVIS_ITS ---
Vital Signs 11/06/24 15:36 Height 5 ft 6.25 in Weight 200 lb BMI 32.0 Intake Visit Reasons: 2 week follow up s/p Left GSV RFA Intake Note: 2 week follow up Left LE GSV RFA 10/24/24. Pt states his leg is feeling much better. Still has some rope like VV, but not as swollen. Pt does have a stitch that is irritating him. Accompanied by: Daughter Allergies No Known Allergies Allergy (Verified 11/06/24 15:40) HPI HPI 2 week follow up s/p Left GSV RFA: Details: Jac is is presenting today for a 2 week follow up to a left GSV RFA, performed on 10/24/2024. He states he is doing much better. He states he feels like the varicosities are going down in size. He has no pain in the area. He has no new concerns today. He does state he has some irritation where the 1 suture that was placed is. PENDING SALE TO [facility] Medical History Varicose veins of both lower extremities Thyroid condition Hypertension Hypercholesterolemia Type 2 diabetes mellitus Surgical History Status post phlebectomy Status post laser cataract surgery of both eyes Family History Sister Dementia Father Cardiac disease Mother Cardiac disease Social History Household Members: None Housing: Apartment Alcohol intake: never Patient Tobacco Use Status: Former Tobacco user Years Smoked: 25 e-Cigarette/Vaping Use: Never Used service: No Current occupational status: retired Cognitive needs: No Hearing needs: No Vision needs: No Review of Systems Const Reports as per HPI and Denies weakness ENT Reports Normal hearing present and Denies dizziness Card Reports as per HPI, Denies chest pain, Denies chest pain at rest, Denies chest pain with activity, Denies dyspnea and Denies dyspnea on exertion Resp Reports as per HPI, Denies cough, Denies dyspnea and Denies dyspnea on exertion GI Reports as per HPI, Denies abdominal pain, Denies nausea and Denies vomiting Musc Denies numbness Skin/Breast Reports as per HPI, Denies erythema and Denies wounds Neuro Reports Normal hearing present, Denies dizziness, Denies numbness, Denies Sensory deficit (Neuro) and Denies weakness Psych Reports no additional complaints Endo Reports no additional complaints Physical Exam Vital Signs: BMI result Body Mass Index 32.0 Neuro Cranial nerves: Yes Normal hearing present Sensory Exam: No Sensory deficit (Neuro) Extrem Other: Left lower extremity: Incision sites are scabbing over. One suture removed without difficulty. No bleeding or discharge noted. Band aid put over the site Assessment & Plan Assessment & Plan (1) Varicose veins of left lower extremity with inflammation: Comment: 10/24/2024 - left great saphenous vein radiofrequency ablation Code(s): I83.12 - Varicose veins of left lower extremity with inflammation Category: Medical Plan: Jac is presenting as a 2 week follow up to a left GSV RFA, performed on 10/24/2024. He states he is doing much better and has already seen some results with the varicosities decreasing in size. I did remove the 1 suture that had been placed without difficulty. There was no bleeding or discharge noted from the area. We did place a Band-Aid on it. We discussed the importance of continuing with compression stockings, elevation, and physical activity. We discussed the importance of a healthy, well-balanced diet. We discussed that it could take upwards of over a month for the varicosities to completely resolve. We discussed that if he has any concerns he can reach out to our office at any point. Thank you for allowing us to participate in the patient's care. If there are any questions or concerns, please do not hesitate to reach out to us. Coding Level of Care Code Est Pt Level 4 (34967) Diagnoses Varicose veins of left lower extremity with inflammation I83.12
== END 2024-11-06 15:52 | disposition home or self-care (01) ==
PROVIDERS: PCP Internal Medicine; Visit Provider Surgery Vascular Surgery
DX: I83.12 Varicose veins of left lower extremity with inflammation (principal)
CPT/HCPCS: 99214

== ENCOUNTER → 2024-11-06 15:35 | Outpatient (BNVA) | payer MEDICARE, SELFPAY | PROVIDERS: PCP Internal Medicine; Visit Provider Surgery Vascular Surgery | DX: I83.12 Varicose veins of left lower extremity with inflammation (principal) | CPT/HCPCS: 99212 ==

== ENCOUNTER 2024-12-15 08:57 | Outpatient (AMB) | payer MEDICARE, SELFPAY ==
--- NOTE | 2024-12-15 09:07 | A.OFFPC_ITS ---
Vital Signs 12/15/24 09:12 Height 5 ft 6.25 in Weight 208 lb 4 oz BMI 33.4 BP 136/68 Blood Pressure Location Rt brachial Position Sitting Respiration 14 Pulse 66 Pulse Source Pulse Oximeter Pulse Oximetry (%) 96 Oxygen Delivery Method Room Air Intake Visit Reasons: DM follow up Intake Note: Diabetes follow up. Has been out of [employer] since October. He is afraid of cost or copay. Was too afraid to check with the pharmacy. Restarted Glipizide, but unsure of dose. Went to Eye doctor on Sunday and was told pt has diabetes in right eye. Will be seeing a specialist. Birth Attendant Required: No Birth Attendant Name: immigration paralegal declined. Accompanied by: Daughter Allergies No Known Allergies Allergy (Verified 12/15/24 09:09) Medication List - Last Reconciled 12/15/24 by Bri Taylor MD atorvastatin 10 mg PO BEDTIME hydrochlorothiazide 12.5 mg PO QAM lancets (OneTouch Delica Plus Lancet) As directed levothyroxine 150 mcg PO DAILY lisinopril 20 mg PO DAILY metformin 1,000 mg PO BIDWMEAL Mounjaro (tirzepatide) 2.5 mg (0.5 mL) subcut QWEEK NS OneTouch Delica Plus Lancet (lancets) once daily NS OneTouch Ultra Test (blood sugar diagnostic) once daily NS pioglitazone 30 mg PO DAILY Tobacco use date assessed: 06/13/24 Dental Screening Dental Screen Date: 06/13/24 HPI HPI Comments History of Present Illness Details 69 year old male with type 2 diabetes, p eripheral vascular disease, hypertension, presenting for diabetes follow up Type 2 diabetes: on glipizide, metformin, actos 30mg daily. Was going to do [employer] but feared his copay would be high. Has peripheral vascular disease. Was referred to vascular. Left leg with less swelling Hypothyroid: On levothyroxine 150mcg daily CV: On hctz, lisinopril, atorvastatin. BP 136/68. Denies chest pain, exertional dyspnea. Endorses urinating up to 6 times per night. Some burning intermittently ROS see HPI PHYSICAL EXAM: GENERAL: Alert and oriented x 3. NAD EYES: EOMI. Anicteric. HENT: Moist mucous membranes. No scleral icterus. No cervical lymphadenopathy. LUNGS: Clear to auscultation bilaterally. CARDIOVASCULAR: Regular rate and rhythm. No murmur. No JVD. ABDOMEN: Soft, non-tender +bs EXTREMITIES: No edema. Non-tender. SKIN: Warm, dry NEUROLOGIC: No focal neurological deficits. CN II-XII grossly intact PSYCHIATRIC: Cooperative. Appropriate mood and affect [facility] Medical History Varicose veins of both lower extremities Thyroid condition Hypertension Hypercholesterolemia Type 2 diabetes mellitus Surgical History Status post phlebectomy Status post laser cataract surgery of both eyes Family History Sister Dementia Father Cardiac disease Mother Cardiac disease Social History Household Members: None Housing: Apartment Alcohol intake: never Patient Tobacco Use Status: Former Tobacco user Years Smoked: 25 e-Cigarette/Vaping Use: Never Used service: No Current occupational status: retired Cognitive needs: No Hearing needs: No Vision needs: No Questionnaire PHQ-9 Over the last 2 weeks, how often have you been bothered by any of the following problems? 1. Little interest or pleasure in doing things: not at all 2. Feeling down, depressed, or hopeless: not at all 3. Trouble falling or staying asleep, or sleeping too much: not at all 4. Feeling tired or having little energy: not at all 5. Poor appetite or overeating: not at all 6. Feeling bad about yourself - or that you are a failure or have let yourself or your family down: not at all 7. Trouble concentrating on things, such as reading the newspaper or watching television: not at all 8. Moving or speaking so slowly that other people could have noticed. Or the opposite - being so fidgety or restless that you have been moving around a lot more than usual: not at all 9. Thoughts that you would be better off or of hurting yourself in some way: not at all Total score: 0 Depression Screening Interpretation: Negative Depression Screening Done: Yes 15990 - PHQ-9 Billing: Yes Source: Developed by Drs. Clark Mckeon, Ning Geronimo, Favian Plata and colleagues, with an educational nakita from [employer]. Thrive Questionnaire Date Thrive assessed: 12/08/24 I am a: Patient What is your living situation today?: I have a steady place to live Within the past 12 months, did the food you bought not last and you didn't have the money to get more?: Never true Within the past 12 months, did you worry whether your food would run out before you got money to buy more?: Never true Do you have trouble paying for medicines?: I choose not to answer this question Do you have trouble getting transportation to medical appointments?: No Do you have trouble paying your heating and electricity bill?: No Do you have trouble taking care of your child, family member or friend?: No Do you have trouble with day-to-day activities such as bathing, preparing meals, shopping, managing finances, etc.?: No Are you currently unemployed and looking for a job?: No Are you interested in more education?: No Please select the resources that you would like help with: None Currently or been in a relationship where the following occur: No concerns reported THRIVE Score: 0 AUDIT C Alcohol Use Questionnaire (AUDIT-C) 1. How often do you have a drink containing alcohol?: Never Total Score: 0 TENA-7 AMB Questionnaire TENA-7 Date TENA - 7 assessed: 12/15/24 Feeling nervous, anxious, or on edge: 0 = Not at all Not being able to stop or control worryin = Not at all Worrying too much about different things: 0 = Not at all Trouble relaxin = Not at all Being so restless that it is hard to sit still: 0 = Not at all Becoming easily annoyed or irritable: 0 = Not at all Feeling afraid as if something awful might happen: 0 = Not at all Total TENA-7 score (0-4 normal; 5-9 mild; 10-14 moderate; 15-21 severe): 0 Source: Developed by Drs. Clark Mckeon, Ning Geronimo, Favian Plata and colleagues, with an educational nakita from [employer]. TENA-7 Assessment Billing TENA-7 Assessment Tool: TENA-7 Assessment 28853 Physical exam (Primary Care) Vital Signs: Last Vital Signs Pulse 66 12/15/24 09:12 Resp 14 12/15/24 09:12 BP 136/68 12/15/24 09:12 Pulse Ox 96 12/15/24 09:12 Oxygen Delivery Method Room Air 12/15/24 09:12 BMI result Body Mass Index 33.4 Tobacco/Smoking Status: Tobacco use Status Tobacco use date assessed 06/13/24 12/15/24 09:18 Patient Tobacco Use Status Former Tobacco user 12/15/24 09:27 e-Cigarette/Vaping Use Never Used 12/15/24 09:27 PHQ-9: PHQ-9 Score PHQ-9: Total score 0 12/15/24 09:27 Depression Screening Interpretation: Negative Thrive Assessment: Date of Thrive Assessment Date Thrive assessed 12/08/24 12/15/24 09:18 Currently or been in a relationship where the following occur: No concerns reported Results AMB Hemoglobin A1c AMB Hemoglobin A1c 7.0 % Last Edit by Brit Mckenzie CMA on 12/15/24 09:24 Results Reviewed Results Reviewed: Laboratory Last Values Hgb A1c (Clinic) 7.0 % (4.0-6.0) H 12/15/24 09:21 Coding Level of Care Code Est Pt Level 4 (28925) Diagnoses Type 2 diabetes mellitus with other circulatory complication, without long-term current use of insulin E11.59 Diabetes mellitus superintendent terminal insulin use: without superintendent terminal use Diabetes mellitus complication status: with circulatory complication Diabetes mellitus complication detail: with other circulatory complications Nocturia R35.1 Peripheral vascular disease I73.9 Additional Codes TENA-7 Assessment Billing - TENA-7 Assessment Tool: TENA-7 Assessment 46014 ([id number]) PHQ-9 - 59398 - PHQ-9 Billing: Yes ([id number]) Assessment & Plan Assessment & Plan (1) Type 2 diabetes mellitus: Code(s): E11.9 - Type 2 diabetes mellitus without complications Category: Medical Qualifiers: Diabetes mellitus superintendent terminal insulin use: without superintendent terminal use Diabetes mellitus complication status: with circulatory complication Diabetes mellitus complication detail: with other circulatory complications Qualified Code(s): E11.59 - Type 2 diabetes mellitus with other circulatory complications Plan: Controlled on current medications. congratulated on interval improvement If mounjaro covered he will stop glipizide Eye exam annually (2) Nocturia: Code(s): R35.1 - Nocturia Category: Medical Plan: refer urology. psa ordered (3) Peripheral vascular disease: Code(s): I73.9 - Peripheral vascular disease, unspecified Category: Medical Plan: following with vascular Orders: Orders Prostate Specific Antigen Today R30.0 - Dysuria, Z12.5 - Encounter for screening for malignant neoplasm of prostate AMB Hemoglobin A1c Today E11.59 - Type 2 diabetes mellitus with other circulatory complications UA CC w/rflx Micro + Cult Today R30.0 - Dysuria, Z12.5 - Encounter for screening for malignant neoplasm of prostate T Spot TB Today Z92.89 - Personal history of other medical treatment Referrals Gastroenterology Referral C18.9 - Malignant neoplasm of colon, unspecified Urology Referral R35.1 - Nocturia Medications: Refilled Mounjaro (tirzepatide) for 4 weeks 2.5 mg (0.5 mL) subcut QWEEK 2 mL 3RF NS
[2024-12-15 09:12] VITALS: BP 136/68; PULSE 66; RESP 14; O2SAT 96; BMI 33.4
== END 2024-12-15 09:35 | disposition home or self-care (01) ==
LOC: HO.HMCFM 08:57
PROVIDERS: PCP Internal Medicine; Visit Provider Internal Medicine
DX: E11.59 Type 2 diabetes mellitus with other circulatory complications (principal); R35.1 Nocturia; I73.9 Peripheral vascular disease, unspecified

== ENCOUNTER → 2024-12-15 08:57 | Outpatient (BNVA) | payer MEDICARE, SELFPAY | PROVIDERS: PCP Internal Medicine; Visit Provider Internal Medicine | DX: E11.59 Type 2 diabetes mellitus with other circulatory complications (principal); E07.9 Disorder of thyroid, unspecified; R35.1 Nocturia; I73.9 Peripheral vascular disease, unspecified; R30.0 Dysuria; Z12.5 Encounter for screening for malignant neoplasm of prostate; Z92.89 Personal history of other medical treatment | CPT/HCPCS: 83036; 96127; 99212 ==

== ENCOUNTER 2024-12-15 09:54 | Outpatient (REF) | payer MEDICARE, SELFPAY ==
[2024-12-15 12:35] LABS: Appearance Urine Clear; Color Urine Yellow; Glucose Urine UA Negative (Negative); Leukocyte Esterase Urine Negative (Negative); Nitrite Urine Negative (Negative); PH 5.5 (5.0-9.0); Urine Blood Negative (Negative); Urine Ketones Negative (Negative); Urine Protein Negative (Neg-Trace)
[2024-12-15 13:06] LABS: Estimated Average Glucose 154 mg/dL
[2024-12-15 13:22] LABS: Alanine Aminotransferase 19 U/L (0-40); Albumin Level 4.3 g/dL (3.5-5.0); Alkaline Phosphatase 111 U/L (39-117); Anion Gap 11 (12-20); Aspartate Amino Transferase 22 U/L (5-37); Blood Urea Nitrogen 19 mg/dL (9-16); Calcium 9.6 mg/dL (8.4-10.2); Carbon Dioxide 27 mmol/L (22-29); Chloride 103 mmol/L (96-108); Estimated Glomerular Filt Rate > 60; Glucose Random 92 mg/dL (60-115); Potassium 4.1 mmol/L (3.3-5.1); Sodium 137 mmol/L (135-145); Total Protein 7.2 g/dL (6.5-8.0)
[2024-12-15 13:23] LABS: TSH reflex Free T4 0.08 uIU/mL (0.32-4.0)
[2024-12-15 13:34] LABS: Prostate Specific Antigen 0.46 ng/mL (<0.05-4.0)
[2024-12-15 14:34] LABS: Free T4 (Free Thyroxine) 1.33 ng/dL (0.71-1.85)
[2024-12-18 03:23] LABS: TS Negative Control Passed; TS Panel A 0; TS Panel B 0; TS Positive Control Passed; TSpotTB Negative (Negative)
== END 2024-12-15 09:55 | disposition home or self-care (01) ==
LOC: HO.WFDLDS 09:54
PROVIDERS: Visit Provider Internal Medicine
DX: E11.59 Type 2 diabetes mellitus with other circulatory complications (principal); E07.9 Disorder of thyroid, unspecified; R35.1 Nocturia; I73.9 Peripheral vascular disease, unspecified; R30.0 Dysuria; Z12.5 Encounter for screening for malignant neoplasm of prostate; Z92.89 Personal history of other medical treatment
CPT/HCPCS: 36415; 80053; 81003; 83036; 84153; 84439; 84443; 86481; 96127; 99212

== ENCOUNTER 2025-02-16 07:54 | Outpatient (AMB) | payer MEDICARE, SELFPAY ==
--- NOTE | 2025-02-16 08:11 | MHC.OFFVIS ---
Intake Visit Reasons: nocturia Intake Note: New patient presents today for initial visit for nocturia Urology Medication:None Blood Thinner:None Antibiotic Allergies:None PVR:95ml Fish Hatchery Worker Required: Yes Fish Hatchery Worker Services: Fish Hatchery Worker Present Allergies No Known Allergies Allergy (Verified 02/16/25 08:16) Medication List - Last Reconciled 02/16/25 by Renetta Prieto MD atorvastatin 10 mg PO BEDTIME glipizide 10 mg PO DAILY hydrochlorothiazide 12.5 mg PO QAM lancets (OneTouch Delica Plus Lancet) As directed levothyroxine 150 mcg PO DAILY levothyroxine 137 mcg PO DAILY lisinopril 20 mg PO DAILY metformin 1,000 mg PO BIDWMEAL Mounjaro (tirzepatide) 2.5 mg (0.5 mL) subcut QWEEK NS OneTouch Delica Plus Lancet (lancets) once daily NS OneTouch Ultra Test (blood sugar diagnostic) once daily NS pioglitazone 30 mg PO DAILY tamsulosin (Flomax) 0.4 mg PO BEDTIME HPI Comments Details: 02/16/25--Jac lawrence Divehi-speaking who is here as a new patient evaluation for nocturia. PHM Diabetes History of Present Illness The patient is a 69-year-old male presenting with concerns of frequent urination. He has experienced nocturia for about one year, reporting an average of five awakenings per night to void. This issue has persisted unabated and significantly affects his sleep quality. He has a about a ten-year history of Type 2 Diabetes Mellitus, with recent medication adjustments to better manage his glucose levels, including the initiation of Mounjaro. In addition to urinary frequency, the patient also reports erectile dysfunction, presumably due to diabetic neuropathy. The patient's past PSA levels were normal at 0.46 mg/mL. There is no additional history of urinary tract infections or hematuria. I explained to the patient that his symptoms of frequent urination and erectile dysfunction are likely related to his Type 2 Diabetes Mellitus. I discussed the physiological impacts of diabetes on the nervous system and bladder function, which contribute to voiding dysfunction. I proposed starting tamsulosin to facilitate improved urinary flow by relaxing prostate muscle. We discussed ordering an ultrasound of the urinary tract. Potential future interventions might include cystoscopy. Urinary Symptoms Review - Frequent nocturia, requiring awakening five times nightly - Symptoms present for approximately one year - No noted urinary tract infections or hematuria Results - Labs: PSA level of 0.46 mg/mL on 12/15/24, within normal range - Urine sample from the visit: No signs of infection or hematuria PFSH Medical History Varicose veins of both lower extremities Thyroid condition Hypertension Hypercholesterolemia Type 2 diabetes mellitus Surgical History Status post phlebectomy Status post laser cataract surgery of both eyes Family History Sister Dementia Father Cardiac disease Mother Cardiac disease Social History Household Members: None Housing: Apartment Alcohol intake: never Patient Tobacco Use Status: Former Tobacco user Years Smoked: 25 e-Cigarette/Vaping Use: Never Used service: No Current occupational status: retired Cognitive needs: No Hearing needs: No Vision needs: No Review of Systems Const All systems reviewed & are unremarkable except as noted in HPI and below Reports no additional complaints Eyes Reports no additional complaints ENT Reports no additional complaints Card Reports no additional complaints Resp Reports no additional complaints GI Reports no additional complaints Reports as per HPI Musc Reports no additional complaints Skin/Breast Reports system reviewed and no additional complaints, except as documented Neuro Reports no additional complaints Psych Reports no additional complaints Endo Reports no additional complaints Cristóbal/Lymph Reports no additional complaints Aller/Immun Reports no additional complaints Physical Exam Const General: healthy appearing, no acute distress and well developed Orientation/consciousness: patient oriented x3 HEENT Head: Yes normocephalic and Yes atraumatic Eyes Conjunctivae: conjunctivae normal Neck Neck: Yes normal visual inspection Chest Chest palpation & inspection: normal inspection of the chest Resp Effort & Inspection: normal respiratory effort GI Inspection: Yes normal to inspection Palpation (GI): Soft to palpation Neuro General: patient oriented x3 Psych Appearance: grossly normal Affect: normal affect Assessment & Plan Assessment & Plan (1) Nocturia: Code(s): R35.1 - Nocturia Category: Medical (2) BPH loc w urin obs/LUTS: Code(s): N40.1 - Benign prostatic hyperplasia with lower urinary tract symptoms Category: Medical (3) Erectile dysfunction: Code(s): N52.9 - Male erectile dysfunction, unspecified Category: Medical (4) Diabetes: Code(s): E11.9 - Type 2 diabetes mellitus without complications Category: Medical Plan Ultrasound retroperitoneum Tamsulosin 0.4 mg daily in the evening Orders: Orders US renal BI Today N40.1 - Benign prostatic hyperplasia with lower urinary tract symptoms, R35.1 - Nocturia Medications: New tamsulosin (Flomax) 0.4 mg PO BEDTIME 90 caps 0RF Patient Instructions: The patient had an opportunity to ask questions regarding treatment plan. The patient expressed understanding and agreement with the above treatment plan. The patient is aware they should contact our office by phone for worsening of their current condition or the appearance of new symptoms. Compliance is encouraged with any medications and followup testing that is ordered. It is a privilege to be allowed the opportunity to participate in the urologic care of your patient. If you have any questions or concerns regarding treatment for the above conditions please do not hesitate to contact me. The office telephone contact is [phone]. This note is constructed in part using voice recognition software. While every effort has been made to ensure accuracy manager report errors may have been included. Yours sincerely, Renetta Prieto MD Scribe Plan - Not visible on output: Patient was informed and verbally consented to the use of an ambient scribe for clinic note documentation during this visit. Coding Level of Care Code New Pt Level 4 (96398) Diagnoses Nocturia R35.1 BPH loc w urin obs/LUTS N40.1 Erectile dysfunction N52.9 Diabetes E11.9
== END 2025-02-16 08:34 | disposition home or self-care (01) ==
LOC: HO.HUSH 07:55
PROVIDERS: PCP Internal Medicine; Visit Provider Urology
DX: N40.1 Benign prostatic hyperplasia with lower urinary tract symptoms (principal); R35.1 Nocturia; N52.9 Male erectile dysfunction, unspecified; E11.9 Type 2 diabetes mellitus without complications
CPT/HCPCS: 99204

== ENCOUNTER 2025-02-16 07:54 | Outpatient (REF) | payer MEDICARE, SELFPAY | END 2025-02-16 07:55 | disposition home or self-care (01) | LOC: HO.LAB 07:54 | PROVIDERS: PCP Internal Medicine; Visit Provider Urology | DX: N40.1 Benign prostatic hyperplasia with lower urinary tract symptoms (principal); N13.8 Other obstructive and reflux uropathy; R35.1 Nocturia; N52.9 Male erectile dysfunction, unspecified; E11.9 Type 2 diabetes mellitus without complications; R30.0 Dysuria | CPT/HCPCS: 81003; 87086; 99202 ==

== ENCOUNTER 2025-03-17 08:50 | Outpatient (AMB) | payer MEDICARE, SELFPAY ==
--- NOTE | 2025-03-17 08:57 | A.OFFPC_ITS ---
Vital Signs 03/17/25 09:04 Height 5 ft 6.25 in Weight 192 lb BMI 30.8 BP 96/54 L Blood Pressure Location Rt brachial Position Sitting Respiration 14 Pulse 74 Pulse Source Pulse Oximeter Temp 98.2 F Temp Source Oral Pulse Oximetry (%) 97 Oxygen Delivery Method Room Air Intake Visit Reasons: 3 Months follow up - see comments Intake Note: Three month follow up Tool Engine Lathe Set Up Operator Name: Tool Engine Lathe Set Up Operator declined Accompanied by: Daughter Allergies No Known Allergies Allergy (Verified 03/17/25 08:58) Tobacco use date assessed: 03/17/25 Dental Screening Dental Screen Date: 06/13/24 HPI HPI Comments History of Present Illness Details 69 year old male with type 2 diabetes, p eripheral vascular disease, hypertension, presenting for diabetes follow up Type 2 diabetes: on mounjaro 2.5 weekly, metformin, actos 30mg daily. A1C today 6.5% from 7.0%. He has lost 16 pounds. Has peripheral vascular disease. Was referred to vascular. Left leg with less swelling Hypothyroid: On levothyroxine 137 decreased from 150mcg daily after last TSH suppressed CV: On hctz, lisinopril, atorvastatin. BP low today perhaps in setting of weight loss. Denies chest pain, exertional dyspnea. Nocturia/polyuria: Saw urology Left foot pain. Ongoing medial proximal dorsal. swelling withing redness Referred to GI for colonoscopy ROS see HPI PHYSICAL EXAM: GENERAL: Alert and oriented x 3. NAD EYES: EOMI. Anicteric. HENT: Moist mucous membranes. No scleral icterus. No cervical lymphadenopathy. LUNGS: Clear to auscultation bilaterally. CARDIOVASCULAR: Regular rate and rhythm. No murmur. No JVD. ABDOMEN: Soft, non-tender +bs EXTREMITIES: No edema. Non-tender. SKIN: Warm, dry NEUROLOGIC: No focal neurological deficits. CN II-XII grossly intact PSYCHIATRIC: Cooperative. Appropriate mood and affect [facility] Medical History Varicose veins of both lower extremities Thyroid condition Hypertension Hypercholesterolemia Type 2 diabetes mellitus Surgical History Status post phlebectomy Status post laser cataract surgery of both eyes Family History Sister Dementia Father Cardiac disease Mother Cardiac disease Social History Household Members: None Housing: Apartment Alcohol intake: never Patient Tobacco Use Status: Former Tobacco user Years Smoked: 25 e-Cigarette/Vaping Use: Never Used service: No Current occupational status: retired Cognitive needs: No Hearing needs: No Vision needs: No Questionnaire Thrive Questionnaire Date Thrive assessed: 12/08/24 I am a: Patient What is your living situation today?: I have a steady place to live Within the past 12 months, did the food you bought not last and you didn't have the money to get more?: Never true Within the past 12 months, did you worry whether your food would run out before you got money to buy more?: Never true Do you have trouble paying for medicines?: I choose not to answer this question Do you have trouble getting transportation to medical appointments?: No Do you have trouble paying your heating and electricity bill?: No Do you have trouble taking care of your child, family member or friend?: No Do you have trouble with day-to-day activities such as bathing, preparing meals, shopping, managing finances, etc.?: No Are you currently unemployed and looking for a job?: No Are you interested in more education?: No Please select the resources that you would like help with: None Currently or been in a relationship where the following occur: No concerns reported THRIVE Score: 0 TENA-7 AMB Questionnaire TENA-7 Date TENA - 7 assessed: 12/15/24 Source: Developed by Drs. Clark Mckeon, Ning Geronimo, Favian Plata and colleagues, with an educational nakita from [employer]. Physical exam (Primary Care) Tobacco/Smoking Status: Tobacco use Status Tobacco use date assessed 03/17/25 03/17/25 08:59 Patient Tobacco Use Status Former Tobacco user 03/17/25 08:59 e-Cigarette/Vaping Use Never Used 03/17/25 08:59 Thrive Assessment: Date of Thrive Assessment Date Thrive assessed 12/08/24 03/17/25 08:59 Currently or been in a relationship where the following occur: No concerns reported Results AMB Hemoglobin A1c AMB Hemoglobin A1c 6.5 % Last Edit by Brit Mckenzie CMA on 03/17/25 09:16 Coding Level of Care Code Est Pt Level 4 (80297) Complex EM visit Add On G2211 Diagnoses Type 2 diabetes mellitus with other circulatory complication, without long-term current use of insulin E11.59 Diabetes mellitus intermediate frame tender insulin use: without intermediate frame tender use Diabetes mellitus complication status: with circulatory complication Diabetes mellitus complication detail: with other circulatory complications Primary hypertension I10 Hypertension type: primary hypertension Thyroid condition E07.9 Assessment & Plan Assessment & Plan (1) Type 2 diabetes mellitus: Code(s): E11.9 - Type 2 diabetes mellitus without complications Category: Medical Qualifiers: Diabetes mellitus intermediate frame tender insulin use: without mcc use Diabetes mellitus complication status: with circulatory complication Diabetes mellitus complication detail: with other circulatory complications Qualified Code(s): E11.59 - Type 2 diabetes mellitus with other circulatory complications (2) Hypertension: Code(s): I10 - Essential (primary) hypertension Category: Medical Qualifiers: Hypertension type: primary hypertension Qualified Code(s): I10 - Essential (primary) hypertension (3) Thyroid condition: Code(s): E07.9 - Disorder of thyroid, unspecified Category: Medical Plan DM-controlled on current medications. Some GI upset with metformin -decrease to 1/2 tab bid. Labs ordered 3 months BP is soft. He can DC hctz given weight loss Orders: Orders Microalbumin 24 hr Urine 3 Months E11.59 - Type 2 diabetes mellitus with other circulatory complications, E11.9 - Type 2 diabetes mellitus without complications, I10 - Essential (primary) hypertension Comprehensive Met. Panel 3 Months E11.59 - Type 2 diabetes mellitus with other circulatory complications, E11.9 - Type 2 diabetes mellitus without complications, I10 - Essential (primary) hypertension XR foot LT 2V Today M79.672 - Pain in left foot AMB Hemoglobin A1c Today E11.9 - Type 2 diabetes mellitus without complications Hemoglobin A1c 3 Months E11.59 - Type 2 diabetes mellitus with other circulatory complications, E11.9 - Type 2 diabetes mellitus without complications, I10 - Essential (primary) hypertension TSH reflex Free T4 3 Months E11.59 - Type 2 diabetes mellitus with other circulatory complications, E11.9 - Type 2 diabetes mellitus without complications, I10 - Essential (primary) hypertension Referrals Podiatry Referral M79.672 - Pain in left foot Medications: Discontinued hydrochlorothiazide Discontinued Reason: Doctor's Order 12.5 mg PO QAM 90 caps 3RF
[2025-03-17 09:04] VITALS: BP 96/54; PULSE 74; RESP 14; TEMP 36.8; O2SAT 97; BMI 30.8
== END 2025-03-17 09:25 | disposition home or self-care (01) ==
LOC: HO.HMCFM 08:51
PROVIDERS: PCP Internal Medicine; Visit Provider Internal Medicine
DX: E11.59 Type 2 diabetes mellitus with other circulatory complications (principal); I10 Essential (primary) hypertension; E07.9 Disorder of thyroid, unspecified

== ENCOUNTER → 2025-03-17 08:50 | Outpatient (BNVA) | payer MEDICARE, SELFPAY | PROVIDERS: PCP Internal Medicine; Visit Provider Internal Medicine | DX: E11.59 Type 2 diabetes mellitus with other circulatory complications (principal); I73.9 Peripheral vascular disease, unspecified; I10 Essential (primary) hypertension; E03.9 Hypothyroidism, unspecified; M79.672 Pain in left foot; Z79.899 Other long term (current) drug therapy | CPT/HCPCS: 83036; 99212 ==

== ENCOUNTER 2025-04-29 07:48 | Outpatient (AMB) | payer MEDICARE, SELFPAY ==
--- NOTE | 2025-04-29 07:52 | A.OFFVIS_ITS ---
Vital Signs 04/29/25 07:53 Height 5 ft 6.25 in Weight 185 lb BMI 29.6 BP 98/65 Blood Pressure Location Lt brachial Position Sitting Pulse 56 Pulse Oximetry (%) 97 Oxygen Delivery Method Room Air Intake Visit Reasons: [place] screening r/s 05/15/25 Intake Note: Patient new consult for 2nd pre Colonoscopy screening. Patient denies any GI issues. 1st [place] was in [place] 10 yrs or more ago. 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 Accompanied by: Family/Other Allergies No Known Allergies Allergy (Verified 04/29/25 07:52) Medication List - Last Reconciled 04/29/25 by Adelina Reyez CNP atorvastatin 10 mg PO BEDTIME levothyroxine 137 mcg PO DAILY lisinopril 20 mg PO DAILY metformin 500 mg PO BIDWMEAL Mounjaro (tirzepatide) 2.5 mg (0.5 mL) subcut QWEEK NS OneTouch Delica Plus Lancet (lancets) once daily NS OneTouch Delica Plus Lancet (lancets) once daily NS OneTouch Ultra Test (blood sugar diagnostic) once daily NS pioglitazone 30 mg PO DAILY tamsulosin (Flomax) 0.4 mg PO BEDTIME HPI HPI [place] screening r/s 05/15/25: Details: Patient is a 69-year-old male with PMH of hypertension, hyperlipidemia, and diabetes. Referred by PCP for pre colonoscopy screening. Patient is accompanied by his daughter who is translating during this visit. Jac reports recent completion of Cologuard test approximately one month ago, which he recalls was negative, although this result remains unconfirmed as of today. A previous colonoscopy performed more than 10 years ago in [place] was noted to be normal. The patient denies current issues with bowel habits, including constipation, diarrhea, or blood in the stool. He does report heartburn occurring infrequently, likely triggered by dietary components such as garlic, onion, or acidic foods. The reflux symptoms resolve independently and do not require medication but occasionally disrupt sleep when occurring at night. He denies abdominal pain, nausea, vomiting, or dysphagia. Occasional swallowing difficulties are attributed to poor mastication due to significant tooth loss, with no active symptoms currently. He denies any unintentional weight loss. Weight loss since November 2024 is deliberate, associated with reduced food intake and initiation of Mounjaro for diabetes management. His weight decreased from 208 lbs in November to 185 lbs currently. He has no prior significant history of colon cancer or family history of GI malignancies. Social hx: -denies ETOH use -denies recreational drug use -former smoker, cessation 30+ years ago - family hx as below -denies personal hx of CA -denies significant cardiopulmonary history -tolerated anesthesia in the past without difficulty. [facility] Medical History (Updated 04/29/25 @ 17:30 by Adelina Reyez CNP) Acid reflux Colon cancer screening Varicose veins of both lower extremities Thyroid condition Hypertension Hypercholesterolemia Type 2 diabetes mellitus Surgical History Status post phlebectomy Status post laser cataract surgery of both eyes Family History Sister Dementia Father Cardiac disease Mother Cardiac disease Social History Household Members: None Housing: Apartment Alcohol intake: never Patient Tobacco Use Status: Former Tobacco user Years Smoked: 25 e-Cigarette/Vaping Use: Never Used service: No Current occupational status: retired Cognitive needs: No Hearing needs: No Vision needs: No Review of Systems Const Reports as per HPI ENT Reports as per HPI Card Reports as per HPI Resp Reports as per HPI GI Reports as per HPI Reports as per HPI Physical Exam Vital Signs: Last Vital Signs Pulse 56 04/29/25 07:53 BP 98/65 04/29/25 07:53 Pulse Ox 97 04/29/25 07:53 Oxygen Delivery Method Room Air 04/29/25 07:53 BMI result Body Mass Index 29.6 Const General: healthy appearing, no acute distress and well developed Nutritional Appearance: average body habitus Orientation/consciousness: patient oriented x3 HEENT Head: Yes normal to inspection, Yes normocephalic and Yes atraumatic Face and sinus: Yes normal facial exam Eyes General: appearance normal, both eyes and all related structures Neck Neck: Yes normal visual inspection Resp Effort & Inspection: normal respiratory effort, able to speak in complete sentences, no tracheal deviation and symmetric chest movement Auscultation: clear to auscultation bilaterally Cardio Jugular venous distension: no JVD Rate: regular rate Rhythm: regular rhythm Heart sounds: S1 normal heart sound present, S2 normal heart sound present, no gallops and no murmurs GI Inspection: Yes normal to inspection, No distended and Yes obesity Palpation (GI): Soft to palpation, not firm, nontender and No hepatosplenomegaly present Auscultation: normal bowel sounds Neuro General: patient oriented x3 Gait exam (Neuro): Normal gait present Psych Appearance: grossly normal Mental Status: mental status grossly normal Speech and movement: Normal speech and movement present Affect: normal affect Attitude: cooperative Thought process: Normal thought process present Thought content: Normal thought content present Insight: Good insight present (Psych) Judgement: Good judgement present (Psych) Assessment & Plan Assessment & Plan (1) Colon cancer screening: Code(s): Z12.11 - Encounter for screening for malignant neoplasm of colon Category: Medical Plan: Screening for colorectal cancer; patient is asymptomatic with a negative Cologuard test still pending confirmation Additional Testing: Await Cologuard test results to determine need for colonoscopy Medication Management: None related to current visit Follow-Up: Call patient within 1-2 weeks with Cologuard results and determine need for colonoscopy (2) Acid reflux: Code(s): K21.9 - Gastro-esophageal reflux disease without esophagitis Category: Medical Qualifiers: Esophagitis presence: esophagitis presence not specified Qualified Code(s): K21.9 - Gastro-esophageal reflux disease without esophagitis Plan: Typical symptoms of heartburn triggered by dietary factors; infrequent without need for medication Additional Testing: Consider EGD to assess for esophageal inflammation or structural abnormalities if symptoms worsen Medication Management: Consider PRN antacids if symptoms escalate Lifestyle Recommendations: Small meals advised over large; avoid triggers such as acidic, spicy foods, garlic, and onions; avoid lying down immediately after eating Plan Follow-up after endoscopy or sooner as needed Time: I spent a total of 45 minutes on the date of encounter which includes: Preparing to see the patient (reviewed previous documentation, test results and medical history) Performing a medically appropriate exam and/or evaluation Ordering medications, tests, and procedures Documenting clinical information in the health record Coding Level of Care Code New Pt New Pt Level 4 (40900) Patient Type New Diagnoses Colon cancer screening Z12.11 Gastroesophageal reflux disease, unspecified whether esophagitis present K21.9 Esophagitis presence: esophagitis presence not specified
[2025-04-29 07:53] VITALS: BP 98/65; PULSE 56; O2SAT 97; BMI 29.6
== END 2025-04-29 08:43 | disposition home or self-care (01) ==
LOC: HO.HGI 07:48
PROVIDERS: PCP Internal Medicine; Visit Provider Nurse Practitioner Family
DX: Z12.11 Encounter for screening for malignant neoplasm of colon (principal); K21.9 Gastro-esophageal reflux disease without esophagitis
CPT/HCPCS: 99024

== ENCOUNTER 2025-04-29 11:22 | Outpatient (REF) | payer MEDICARE, SELFPAY ==
--- NOTE | ~2025-04-29 | US_ITS ---
EXAMINATION: US KIDNEY BILATERAL HISTORY: N40.1 - Benign prostatic hyperplasia with lower urinary tract symptoms TECHNIQUE: Real-time grayscale ultrasound imaging of the kidneys was performed and images were reviewed. COMPARISON: There are no prior studies available for comparison. FINDINGS: Right kidney: The right kidney measures 11.3 x 5.3 x 4.8 cm. Renal parenchymal echotexture and thickness are normal. There are no masses. There is no hydronephrosis or renal calculi. Left Kidney: The left kidney measures 11.8 x 5.2 x 3.6 cm. Renal parenchymal echotexture and thickness are normal. There is a 2.2 x 1.6 x 1.8 cm exophytic cyst of the interpolar region. There is no hydronephrosis or renal calculi. US/US renal BI IMPRESSION: 2.2 x 1.6 x 1.8 cm left renal cyst. Otherwise unremarkable renal ultrasound. Electronically signed by: Clark Ramos MD 04/29/2025 12:12 PM EDT
== END 2025-04-29 11:23 | disposition home or self-care (01) ==
LOC: HO.US 11:22
PROVIDERS: PCP Internal Medicine; Visit Provider Urology
DX: N40.1 Benign prostatic hyperplasia with lower urinary tract symptoms (principal); R35.1 Nocturia; K21.9 Gastro-esophageal reflux disease without esophagitis
CPT/HCPCS: 76775; 99212

== ENCOUNTER → 2025-04-29 11:26 | Outpatient (BNV) | payer MEDICARE, SELFPAY | PROVIDERS: PCP Internal Medicine; Visit Provider Radiology Diagnostic Radiology | DX: N28.1 Cyst of kidney, acquired (principal) | CPT/HCPCS: 76775 ==

== ENCOUNTER 2025-05-15 15:39 | Outpatient (AMB) | payer MEDICARE, SELFPAY ==
--- NOTE | 2025-05-15 15:45 | A.OFFVIS_ITS ---
Intake Visit Reasons: 12w/US Intake Note: patient presents today for: 12 week follow up/US Urology Medication:tamsulosin Blood Thinner:None labs done 04/29/25: renal US PVR: 5mls Fish Conservationist Required: Yes Fish Conservationist Services: Fish Conservationist Present Accompanied by: Unknown Allergies No Known Allergies Allergy (Verified 05/15/25 15:46) Medication List - Last Reconciled 05/15/25 by Renetta Prieto MD atorvastatin 10 mg PO BEDTIME levothyroxine 137 mcg PO DAILY lisinopril 20 mg PO DAILY metformin 500 mg PO BIDWMEAL Mounjaro (tirzepatide) 2.5 mg (0.5 mL) subcut QWEEK NS OneTouch Delica Plus Lancet (lancets) once daily NS OneTouch Delica Plus Lancet (lancets) once daily NS OneTouch Ultra Test (blood sugar diagnostic) once daily NS tamsulosin (Flomax) 0.4 mg PO BEDTIME HPI Comments Details: 05/15/25--Jac presents for follow-up. He was initially evaluated on 02/16/2025 and started on tamsulosin 0.4 mg daily for BPH symptoms. I have reviewed renal ultrasound kidneys are normal small left renal cyst. The patient states that his urine flow has improved. And irritative voiding symptoms are resolved. Continue tamsulosin. Follow-up in 9 months 02/16/25--Jac so [place]-speaking who is here as a new patient evaluation for nocturia. PHM Diabetes History of Present Illness The patient is a 69-year-old male presenting with concerns of frequent urination. He has experienced nocturia for about one year, reporting an average of five awakenings per night to void. This issue has persisted unabated and significantly affects his sleep quality. He has a about a ten-year history of Type 2 Diabetes Mellitus, with recent medication adjustments to better manage his glucose levels, including the initiation of Mounjaro. In addition to urinary frequency, the patient also reports erectile dysfunction, presumably due to diabetic neuropathy. The patient's past PSA levels were normal at 0.46 mg/mL. There is no additional history of urinary tract infections or hematuria. I explained to the patient that his symptoms of frequent urination and erectile dysfunction are likely related to his Type 2 Diabetes Mellitus. I discussed the physiological impacts of diabetes on the nervous system and bladder function, which contribute to voiding dysfunction. I proposed starting tamsulosin to facilitate improved urinary flow by relaxing prostate muscle. We discussed ordering an ultrasound of the urinary tract. Potential future interventions might include cystoscopy. Urinary Symptoms Review - Frequent nocturia, requiring awakening five times nightly - Symptoms present for approximately one year - No noted urinary tract infections or hematuria Results - Labs: PSA level of 0.46 mg/mL on 12/15/24, within normal range - Urine sample from the visit: No signs of infection or hematuria PFSH Medical History Acid reflux Colon cancer screening Varicose veins of both lower extremities Thyroid condition Hypertension Hypercholesterolemia Type 2 diabetes mellitus Surgical History Status post phlebectomy Status post laser cataract surgery of both eyes Family History Sister Dementia Father Cardiac disease Mother Cardiac disease Social History Household Members: None Housing: Apartment Alcohol intake: never Patient Tobacco Use Status: Former Tobacco user Years Smoked: 25 e-Cigarette/Vaping Use: Never Used service: No Current occupational status: retired Cognitive needs: No Hearing needs: No Vision needs: No Review of Systems Const All systems reviewed & are unremarkable except as noted in HPI and below Reports no additional complaints Eyes Reports no additional complaints ENT Reports no additional complaints Card Reports no additional complaints Resp Reports no additional complaints GI Reports no additional complaints Reports as per HPI Musc Reports no additional complaints Skin/Breast Reports system reviewed and no additional complaints, except as documented Neuro Reports no additional complaints Psych Reports no additional complaints Endo Reports no additional complaints Cristóbal/Lymph Reports no additional complaints Aller/Immun Reports no additional complaints Office Procedures Post Void Residual Post Residual Void Post Void Residual (PVR): 5 60047-Orri Void Residual by ultrasound Results AMB Urinalysis, Automated UA Leukoctes 0 Larry/uL Last Edit by MARTIN Bauer on 05/15/25 16:04 UA Nitrite Negative Last Edit by MARTIN Bauer on 05/15/25 16:04 UA Urobilinogen 3.5 mg/dL Last Edit by MARTIN Bauer on 05/15/25 16:0 4 UA Protein 15 mg/dL [facility] 05/[facility] 16:04 UA pH 6.0 Last Edit by Kayleen Cordero [facility] on 05/15/25 16:04 UA Blood 0 Pierre/uL Last Edit by Kayleen Cordero [facility] on 05/15/25 16:04 UA Specific [place] 1.015 Last Edit [facility] 05/15/25 16: 04 UA Ketone Negative Last Edit by Kayleen Cordero [facility] on 05/15/25 16:04 UA Bilirubin 0 mg/dL Last Edit [facility] 05/15/25 16:04 UA Glucose 0 mg/dL Last Edit by MARTIN Bauer on 05/15/25 16:04 Results Reviewed Results Reviewed: Date of Service: 04/29/25 EXAMINATION: US KIDNEY BILATERAL HISTORY: N40.1 - Benign prostatic hyperplasia with lower urinary tract symptoms TECHNIQUE: Real-time grayscale ultrasound imaging of the kidneys was performed and images were reviewed. COMPARISON: There are no prior studies available for comparison. FINDINGS: Right kidney: The right kidney measures 11.3 x 5.3 x 4.8 cm. Renal parenchymal echotexture and thickness are normal. There are no masses. There is no hydronephrosis or renal calculi. Left Kidney: The left kidney measures 11.8 x 5.2 x 3.6 cm. Renal parenchymal echotexture and thickness are normal. There is a 2.2 x 1.6 x 1.8 cm exophytic cyst of the interpolar region. There is no hydronephrosis or renal calculi. IMPRESSION: 2.2 x 1.6 x 1.8 cm left renal cyst. Otherwise unremarkable renal ultrasound. Assessment & Plan Assessment & Plan (1) Nocturia: Code(s): R35.1 - Nocturia Category: Medical (2) BPH loc w urin obs/LUTS: Code(s): N40.1 - Benign prostatic hyperplasia with lower urinary tract symptoms Category: Medical (3) Erectile dysfunction: Code(s): N52.9 - Male erectile dysfunction, unspecified Category: Medical (4) Diabetes: Code(s): E11.9 - Type 2 diabetes mellitus without complications Category: Medical Plan Continue tamsulosin. Follow-up in 9 months Orders: Orders AMB Post Void Residual by ultrasound Today R35.1 - Nocturia AMB Urinalysis Automated Today Z13.9 - Encounter for screening, unspecified Medications: Refilled tamsulosin (Flomax) 0.4 mg PO BEDTIME 90 caps 3RF N40.1 - Benign prostatic hyperplasia with lower urinary tract symptoms Patient Instructions: The patient had an opportunity to ask questions regarding treatment plan. The patient expressed understanding and agreement with the above treatment plan. The patient is aware they should contact our office by phone for worsening of their current condition or the appearance of new symptoms. Compliance is encouraged with any medications and followup testing that is ordered. It is a privilege to be allowed the opportunity to participate in the urologic care of your patient. If you have any questions or concerns regarding treatment for the above conditions please do not hesitate to contact me. The office telephone contact is [phone]. This note is constructed in part using voice recognition software. While every effort has been made to ensure accuracy trouble shooting mechanic errors may have been included. Yours sincerely, Renetta Prieto MD Coding Level of Care Code Est Pt Level 3 (39330) Diagnoses Nocturia R35.1 BPH loc w urin obs/LUTS N40.1 Erectile dysfunction N52.9 Diabetes E11.9 CPT Codes Post Residual Void - PVR CPT Code: 09355-Nmsr Void Residual by ultrasound ([id number])
== END 2025-05-15 16:10 | disposition home or self-care (01) ==
LOC: HO.HUSH 15:39
PROVIDERS: PCP Internal Medicine; Visit Provider Urology
DX: N40.1 Benign prostatic hyperplasia with lower urinary tract symptoms (principal); R35.1 Nocturia; N52.9 Male erectile dysfunction, unspecified; E11.9 Type 2 diabetes mellitus without complications; Z13.9 Encounter for screening, unspecified
CPT/HCPCS: 99213

== ENCOUNTER → 2025-05-15 15:39 | Outpatient (BNVA) | payer MEDICARE, SELFPAY | PROVIDERS: PCP Internal Medicine; Visit Provider Urology | DX: N40.1 Benign prostatic hyperplasia with lower urinary tract symptoms (principal); R35.1 Nocturia; N52.9 Male erectile dysfunction, unspecified; E11.9 Type 2 diabetes mellitus without complications; Z13.9 Encounter for screening, unspecified | CPT/HCPCS: 51798; 81003; 99212 ==

== ENCOUNTER 2025-06-23 15:28 | Outpatient (AMB) | payer MEDICARE, SELFPAY ==
[2025-06-23 15:40] VITALS: BP 108/72; PULSE 61; RESP 14; O2SAT 98; BMI 29.9
--- NOTE | 2025-06-23 15:40 | MHC.PC.OV ---
Vital Signs 06/23/25 15:40 Height 5 ft 6.24 in Weight 186 lb 6 oz BMI 29.9 BP 108/72 Blood Pressure Location Lt brachial Position Sitting Respiration 14 Pulse 61 Pulse Source Pulse Oximeter Pulse Oximetry (%) 98 Oxygen Delivery Method Room Air Intake Visit Reasons: 3 Months follow up Intake Note: Three months follow up. Had abdominal ultrasound in April. Needs a paper script/ three month supply for trip to [place]. 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 A1C today 6.1% fro 6.5% from 7.0%. Has one touch meter. Insurance no longer covering Hypothyroid: On levothyroxine 137mcg daily. CV: On lisinopril, atorvastatin. hctz stopped due to low BG Denies chest pain, exertional dyspnea. Has peripheral vascular disease, follows with vascular. left GSV RFA, performed on 10/24/2024 Nocturia/polyuria: Saw urology GI waiting on cologuard results to decide double endoscopy versus just EGD ROS see HPI PHYSICAL EXAM: GENERAL: Alert and oriented x 3. NAD EYES: EOMI. Anicteric. HENT: Moist mucous membranes. No scleral icterus. No cervical lymphadenopathy. LUNGS: Clear to auscultation bilaterally. CARDIOVASCULAR: Regular rate and rhythm. No murmur. No JVD. ABDOMEN: Soft, non-tender +bs EXTREMITIES: No edema. Non-tender. SKIN: Warm, dry NEUROLOGIC: No focal neurological deficits. CN II-XII grossly intact PSYCHIATRIC: Cooperative. Appropriate mood and affect [facility] Medical History Acid reflux Colon cancer screening Varicose veins of both lower extremities Thyroid condition Hypertension Hypercholesterolemia Type 2 diabetes mellitus Surgical History Status post phlebectomy Status post laser cataract surgery of both eyes Family History Sister Dementia Father Cardiac disease Mother Cardiac disease Social History Household Members: None Housing: Apartment Alcohol intake: never Patient Tobacco Use Status: Former Tobacco user Years Smoked: 25 e-Cigarette/Vaping Use: Never Used service: No Current occupational status: retired Cognitive needs: No Hearing needs: No Vision needs: No Questionnaire Thrive Questionnaire Date Thrive assessed: 12/08/24 I am a: Patient What is your living situation today?: I have a steady place to live Within the past 12 months, did the food you bought not last and you didn't have the money to get more?: Never true Within the past 12 months, did you worry whether your food would run out before you got money to buy more?: Never true Do you have trouble paying for medicines?: I choose not to answer this question Do you have trouble getting transportation to medical appointments?: No Do you have trouble paying your heating and electricity bill?: No Do you have trouble taking care of your child, family member or friend?: No Do you have trouble with day-to-day activities such as bathing, preparing meals, shopping, managing finances, etc.?: No Are you currently unemployed and looking for a job?: No Are you interested in more education?: No Please select the resources that you would like help with: None Currently or been in a relationship where the following occur: No concerns reported THRIVE Score: 0 TENA-7 AMB Questionnaire TENA-7 Date TENA - 7 assessed: 12/15/24 Source: Developed by Drs. Clark Mckeon, Ning Geronimo, Favian Plata and colleagues, with an educational nakita from [employer]. Physical exam (Primary Care) Vital Signs: Last Vital Signs Pulse 61 06/23/25 15:40 Resp 14 06/23/25 15:40 BP 108/72 06/23/25 15:40 Pulse Ox 98 06/23/25 15:40 Oxygen Delivery Method Room Air 06/23/25 15:40 BMI result Body Mass Index 29.9 Tobacco/Smoking Status: Tobacco use Status Tobacco use date assessed 06/23/25 06/23/25 15:46 Patient Tobacco Use Status Former Tobacco user 06/23/25 15:46 e-Cigarette/Vaping Use Never Used 06/23/25 15:46 Thrive Assessment: Date of Thrive Assessment Date Thrive assessed 12/08/24 06/23/25 15:46 Currently or been in a relationship where the following occur: No concerns reported Coding Level of Care Code Est Pt Level 4 (98698) Complex EM visit Add On G2211 Diagnoses Type 2 diabetes mellitus with other circulatory complication, without long-term current use of insulin E11.59 Diabetes mellitus complication detail: with other circulatory complications Diabetes mellitus complication status: with circulatory complication 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: without fdc use Thyroid condition E07.9 Primary hypertension I10 Hypertension type: primary hypertension Peripheral vascular disease I73.9 Assessment & Plan Assessment & Plan (1) Type 2 diabetes mellitus: Code(s): E11.9 - Type 2 diabetes mellitus without complications Category: Medical Qualifiers: Diabetes mellitus complication detail: with other circulatory complications Diabetes mellitus complication status: with circulatory complication Diabetes mellitus fdc insulin use: without fdc use Qualified Code(s): E11.59 - Type 2 diabetes mellitus with other circulatory complications (2) Thyroid condition: Code(s): E07.9 - Disorder of thyroid, unspecified Category: Medical (3) Hypertension: Code(s): I10 - Essential (primary) hypertension Category: Medical Qualifiers: Hypertension type: primary hypertension Qualified Code(s): I10 - Essential (primary) hypertension (4) Peripheral vascular disease: Code(s): I73.9 - Peripheral vascular disease, unspecified Category: Medical Plan Type 2 diabetes is controlled. Increase mounjaro to 5mg. Hold metformin. Accucheck meter sent HTN is well controlled on current medications Awaiting cologuard results. Continue follow up with gastroenterology Medications: New FreeStyle Test (blood sugar diagnostic) once daily and as needed 100 ea 3RF NS E11.59 - Type 2 diabetes mellitus with other circulatory complications Accu-Chek Guide Glucose Meter (blood-glucose meter) As directed 1 ea 0RF NS E11.59 - Type 2 diabetes mellitus with other circulatory complications Accu-Chek Guide test strips (blood sugar diagnostic) once daily and as needed 100 ea 3RF NS E11.59 - Type 2 diabetes mellitus with other circulatory complications Mounjaro (tirzepatide) 5 mg (0.5 mL) subcut QWEEK 6 mL 3RF NS FreeStyle Lite Meter (blood-glucose meter) As directed 1 ea 0RF NS E11.59 - Type 2 diabetes mellitus with other circulatory complications FreeStyle Lancets (lancets) once daily and as needed 100 ea 3RF NS E11.59 - Type 2 diabetes mellitus with other circulatory complications Accu-Chek Softclix Lancets (lancets) once daily and as needed 100 ea 3RF NS E11.59 - Type 2 diabetes mellitus with other circulatory complications Refilled levothyroxine 137 mcg PO DAILY 90 tabs 3RF atorvastatin 10 mg PO BEDTIME 90 tabs 3RF lisinopril 20 mg PO DAILY 90 tabs 3RF tamsulosin (Flomax) 0.4 mg PO BEDTIME 90 caps 3RF N40.1 - Benign prostatic hyperplasia with lower urinary tract symptoms Discontinued Mounjaro (tirzepatide) for 4 weeks Discontinued Reason: Doctor's Order 2.5 mg (0.5 mL) subcut QWEEK 2 mL 3RF NS OneTouch Delica Plus Lancet (lancets) Discontinued Reason: Doctor's Order once daily 100 ea 3RF NS E11.9 - Type 2 diabetes mellitus without complications OneTouch Ultra Test (blood sugar diagnostic) Discontinued Reason: Doctor's Order once daily 100 ea 3RF NS E11.9 - Type 2 diabetes mellitus without complications OneTouch Delica Plus Lancet (lancets) Discontinued Reason: Doctor's Order once daily 100 ea 3RF NS E11.59 - Type 2 diabetes mellitus with other circulatory complications
== END 2025-06-23 16:25 | disposition home or self-care (01) ==
LOC: HO.HMCFM 15:29
PROVIDERS: PCP Internal Medicine; Visit Provider Internal Medicine
DX: E11.59 Type 2 diabetes mellitus with other circulatory complications (principal); E07.9 Disorder of thyroid, unspecified; I10 Essential (primary) hypertension; I73.9 Peripheral vascular disease, unspecified

== ENCOUNTER → 2025-06-23 15:28 | Outpatient (BNVA) | payer MEDICARE, SELFPAY | PROVIDERS: PCP Internal Medicine; Visit Provider Internal Medicine | DX: E11.59 Type 2 diabetes mellitus with other circulatory complications (principal); E07.9 Disorder of thyroid, unspecified; I10 Essential (primary) hypertension; I73.9 Peripheral vascular disease, unspecified; Z87.891 Personal history of nicotine dependence | CPT/HCPCS: 99212 ==